=== PATIENT | male | born 1955 ===

== ENCOUNTER 2023-06-21 07:02 | Outpatient (NON) | payer MEDICARE, SELFPAY ==
[2023-06-21 07:51] LABS: Basophils Absolute Auto 0.04 K/mm3 (0.00-0.10); Basophils Percent Auto 0.6 % (0.0-1.0); Eosinophils Absolute Auto 0.14 K/mm3 (0.02-0.50); Hematocrit 33.2 % (37.0-46.0); Hemoglobin 9.7 g/dL (12.4-15.3); Immature Granulocyte Absolute 0.02 K/mm3 (0.00-0.00); Immature Granulocyte Percent A 0.3 % (0.0-0.0); Lymphocytes Absolute Auto 0.46 K/mm3 (1.10-4.50); Lymphocytes Percent Auto 6.6 % (18.0-42.0); Mean Corpuscular HGB Conc 29.2 g/dL (32-36); Mean Corpuscular Hemoglobin 22.4 pg (27.0-31.0); Mean Corpuscular Volume 76.5 fL (78.0-102.0); Mean Platelet Volume 10.1 fl (8.7-11.0); Monocytes Absolute Auto 1.01 K/mm3 (0.10-0.90); Monocytes Percent Auto 14.6 % (2.0-11.0); Neutrophils Absolute Auto 5.27 K/mm3 (1.70-7.20); Neutrophils Percent Auto 75.9 % (50.0-70.0); Platelet Count Result 265 K/mm3 (150-420); Red Blood Count 4.34 M/mm3 (4.70-6.10); Red Cell Distribution Width 16.3 % (11.6-14.4); White Blood Count 6.9 K/mm3 (4.8-10.8)
[2023-06-21 08:15] LABS: Alanine Aminotransferase 16 U/L (16-63); Albumin Level 2.9 g/dL (3.4-5.0); Alkaline Phosphatase 150 U/L (46-116); Anion Gap 11 mmol/L (8-16); Aspartate Amino Transferase 13 U/L (15-37); Bilirubin,Total 0.7 mg/dL (0.00-1.00); Blood Urea Nitrogen 39 mg/dL (7-18); Calcium 8.1 mg/dL (8.5-10.1); Carbon Dioxide 28 mmol/L (21-32); Chloride 103 mmol/L (98-108); Cholesterol 77 mg/dL (0-200); Estimated Glomerular Filt Rate 37; Glucose 269 mg/dL (70-99); HDL Direct 40 mg/dL (40-60); LDL Cholesterol Calculated 26 mg/dL (<130); Osmolality Calculated 312 mOsm/kg (285-295); Potassium 3.8 mmol/L (3.5-5.1); Sodium 142 mmol/L (136-145); Thyroid Stimulating Hormone 2.35 uIU/mL (0.36-3.74); Total Protein 6.3 g/dL (6.4-8.2); Triglycerides 53 mg/dL (0-150)
[2023-06-23 10:46] LABS: Hemoglobin A1C 10.4 % (<5.7)
[2023-06-23 11:01] LABS: Ferritin 47 ng/mL (26-388); Iron 18 ug/dL (65-175); Percent Iron Saturation 5 % (12-57)
== END 2023-06-21 07:03 | disposition home or self-care (01) ==
PROVIDERS: Visit Provider Family Medicine
DX: I10 Essential (primary) hypertension (principal); E07.9 Disorder of thyroid, unspecified; E11.9 Type 2 diabetes mellitus without complications
CPT/HCPCS: 36415; 80053; 80061; 82728; 83036; 83540; 83550; 84443; 85025

== ENCOUNTER 2023-06-29 14:40 | Outpatient (CLI) | payer MEDICARE, SELFPAY ==
--- NOTE | ~2023-06-29 | XR_ITS ---
EXAM: XR ankle RT 2V, XR ankle LT 2V DATE: 06/29/2023 15:29 HISTORY: OA, weightbearing pain X 2-3 weeks . COMPARISON: None available. FINDINGS: Normal mineralization. Radiographic detail obscured in the right ankle by overlying bandag e material. No fracture or dislocation. No lytic or blastic lesion. Mild bilateral tibiotalar and mid foot degenerative change. Moderate bilateral Achilles and plantar enthesopathy. No erosion or periost eal change. Vascular calcifications. IMPRESSION: No acute osseous finding in the left or right ankles. Reviewed, dictated and finalized at location K. IMPRESSION: No acute osseous finding in the left or right ankles.
--- NOTE | ~2023-06-29 | XR_ITS ---
EXAM: XR knee RT 3V, XR knee LT 3V DATE: 06/29/2023 15:28 HISTORY: weightbearing knee pain X 2-3 weeks . COMPARISON: None available. FINDINGS: Normal mineralization. No fracture or dislocation. No lytic or blastic lesion. Mild medial and lateral joint space narrowing bilaterally. Mild tricompartmental osteophytosis bilaterally. Righ t patellar enthesopathy. Scattered vascular calcifications. No erosion or periosteal change. Soft tis sues within normal limits. IMPRESSION: Bilateral mild tricompartmental knee osteoarthritis. Reviewed, dictated and finalized at location K. IMPRESSION: Bilateral mild tricompartmental knee osteoarthritis.
== END 2023-06-29 14:41 | disposition home or self-care (01) ==
PROVIDERS: PCP Family Medicine; Visit Provider Family Medicine
DX: R52 Pain, unspecified (principal); M17.0 Bilateral primary osteoarthritis of knee
CPT/HCPCS: 73562; 73600

== ENCOUNTER 2023-07-07 06:52 | Outpatient (NON) | payer MEDICARE, SELFPAY ==
[2023-07-07 07:43] LABS: Alanine Aminotransferase 15 U/L (16-63); Albumin Level 2.9 g/dL (3.4-5.0); Alkaline Phosphatase 148 U/L (46-116); Anion Gap 9 mmol/L (4-12); Aspartate Amino Transferase 18 U/L (15-37); Bilirubin,Total 1.1 mg/dL (0.00-1.00); Blood Urea Nitrogen 32 mg/dL (7-18); Calcium 8.4 mg/dL (8.5-10.1); Carbon Dioxide 32 mmol/L (21-32); Chloride 104 mmol/L (98-108); Estimated Glomerular Filt Rate 43; Glucose 154 mg/dL (70-99); Osmolality Calculated 309 mOsm/kg (285-295); Potassium 3.9 mmol/L (3.5-5.1); Sodium 145 mmol/L (136-145); Total Protein 6.1 g/dL (6.4-8.2)
== END 2023-07-07 06:53 | disposition home or self-care (01) ==
LOC: CHSLAB 06:54
PROVIDERS: Visit Provider Family Medicine
DX: I50.9 Heart failure, unspecified (principal); N18.30 Chronic kidney disease, stage 3 unspecified; E11.9 Type 2 diabetes mellitus without complications
CPT/HCPCS: 36415; 80053

== ENCOUNTER 2023-07-18 14:01 | Outpatient (NON) | payer MEDICARE, SELFPAY ==
[2023-07-18 14:13] LABS: Hematocrit 40.7 % (37.0-46.0); Mean Corpuscular Hemoglobin 22.4 pg (27.0-31.0); Mean Corpuscular Volume 83.1 fL (78.0-102.0); Mean Platelet Volume 9.8 fl (8.7-11.0); Platelet Count Result 343 K/mm3 (150-420); Red Cell Distribution Width 22.6 % (11.6-14.4); White Blood Count 8.9 K/mm3 (4.8-10.8)
[2023-07-18 14:59] LABS: Alanine Aminotransferase 24 U/L (16-63); Albumin Level 3.2 g/dL (3.4-5.0); Alkaline Phosphatase 190 U/L (46-116); Anion Gap 7 mmol/L (4-12); Aspartate Amino Transferase 27 U/L (15-37); Bilirubin,Total 0.8 mg/dL (0.00-1.00); Blood Urea Nitrogen 37 mg/dL (7-18); Calcium 8.4 mg/dL (8.5-10.1); Carbon Dioxide 34 mmol/L (21-32); Chloride 102 mmol/L (98-108); Estimated Glomerular Filt Rate 37; Glucose 147 mg/dL (70-99); NT Pro B Type Natriuretic Pept 8612 pg/mL (0-125); Osmolality Calculated 307 mOsm/kg (285-295); Potassium 4.1 mmol/L (3.5-5.1); Sodium 143 mmol/L (136-145)
== END 2023-07-18 14:02 | disposition home or self-care (01) ==
LOC: CHSLAB 14:02
PROVIDERS: Visit Provider Family Medicine
DX: I87.311 Chronic venous hypertension (idiopathic) with ulcer of right lower extremity (principal); L97.812 Non-pressure chronic ulcer of other part of right lower leg with fat layer exposed; L97.822 Non-pressure chronic ulcer of other part of left lower leg with fat layer exposed; E78.5 Hyperlipidemia, unspecified; I10 Essential (primary) hypertension; I50.9 Heart failure, unspecified; N18.30 Chronic kidney disease, stage 3 unspecified; E11.9 Type 2 diabetes mellitus without complications
CPT/HCPCS: 36415; 80053; 83880; 85027

== ENCOUNTER 2023-08-02 06:45 | Outpatient (NON) | payer MEDICARE, SELFPAY ==
[2023-08-02 07:27] LABS: Basophils Absolute Auto 0.06 K/mm3 (0.00-0.10); Basophils Percent Auto 0.6 % (0.0-1.0); Eosinophils Absolute Auto 0.13 K/mm3 (0.02-0.50); Eosinophils Percent Auto 1.3 % (1.0-6.0); Hemoglobin 12.8 g/dL (12.4-15.3); Immature Granulocyte Absolute 0.05 K/mm3 (0.00-0.00); Immature Granulocyte Percent A 0.5 % (0.0-0.0); Lymphocytes Absolute Auto 0.71 K/mm3 (1.10-4.50); Lymphocytes Percent Auto 7.3 % (18.0-42.0); Mean Corpuscular HGB Conc 29.1 g/dL (32-36); Mean Corpuscular Hemoglobin 23.1 pg (27.0-31.0); Mean Corpuscular Volume 79.3 fL (78.0-102.0); Mean Platelet Volume 9.6 fl (8.7-11.0); Monocytes Absolute Auto 1.36 K/mm3 (0.10-0.90); Neutrophils Absolute Auto 7.37 K/mm3 (1.70-7.20); Neutrophils Percent Auto 76.3 % (50.0-70.0); Platelet Count Result 452 K/mm3 (150-420); Red Blood Count 5.55 M/mm3 (4.70-6.10); Red Cell Distribution Width 23.3 % (11.6-14.4); White Blood Count 9.7 K/mm3 (4.8-10.8)
[2023-08-02 07:39] LABS: Alanine Aminotransferase 27 U/L (16-63); Albumin Level 3.3 g/dL (3.4-5.0); Alkaline Phosphatase 176 U/L (46-116); Anion Gap 5 mmol/L (4-12); Aspartate Amino Transferase 33 U/L (15-37); Bilirubin,Total 0.9 mg/dL (0.00-1.00); Blood Urea Nitrogen 61 mg/dL (7-18); Calcium 9.1 mg/dL (8.5-10.1); Carbon Dioxide 33 mmol/L (21-32); Chloride 97 mmol/L (98-108); Estimated Glomerular Filt Rate 26; Glucose 185 mg/dL (70-99); Osmolality Calculated 302 mOsm/kg (285-295); Potassium 4.6 mmol/L (3.5-5.1); Sodium 135 mmol/L (136-145); Total Protein 7.7 g/dL (6.4-8.2)
== END 2023-08-02 06:46 | disposition home or self-care (01) ==
LOC: CHSLAB 06:47
PROVIDERS: Visit Provider Family Medicine
DX: I10 Essential (primary) hypertension (principal); I50.9 Heart failure, unspecified; N18.30 Chronic kidney disease, stage 3 unspecified; E11.9 Type 2 diabetes mellitus without complications
CPT/HCPCS: 36415; 80053; 85025

== ENCOUNTER 2024-02-17 11:55 | Outpatient (CLI) | payer MEDICARE, SELFPAY ==
[2024-02-17 12:17] LABS: Add Urine Microscopic? NO; Appearance Urine Clear (Clear); Bilirubin Urine Negative (Negative); Blood Urine Negative (Negative); Color Urine Light Yellow (Yellow); Glucose Urine UA 3+ (Negative); Ketones Urine Negative (Negative); Leukocyte Esterase Ur Negative LEU/UL (Negative); Nitrate Urine Negative (Negative); Protein Urine Negative (Negative); Specific Grav Ur 1.015 (1.010-1.020); Urobilinogen Urine 0.2 mg/dL (0.2-1.0); pH Urine 5.5 (5.0-8.0)
[2024-02-17 12:18] LABS: Basophils Absolute Auto 0.06 K/mm3 (0.00-0.10); Basophils Percent Auto 0.5 % (0.0-1.0); Eosinophils Absolute Auto 0.19 K/mm3 (0.02-0.50); Eosinophils Percent Auto 1.4 % (1.0-6.0); Hematocrit 49.3 % (37.0-46.0); Immature Granulocyte Absolute 0.06 K/mm3 (0.00-0.00); Immature Granulocyte Percent A 0.5 % (0.0-0.0); Lymphocytes Absolute Auto 0.77 K/mm3 (1.10-4.50); Lymphocytes Percent Auto 5.9 % (18.0-42.0); Mean Corpuscular HGB Conc 32.5 g/dL (32-36); Mean Corpuscular Volume 86.3 fL (78.0-102.0); Mean Platelet Volume 10.3 fl (8.7-11.0); Monocytes Absolute Auto 1.26 K/mm3 (0.10-0.90); Monocytes Percent Auto 9.6 % (2.0-11.0); Neutrophils Percent Auto 82.1 % (50.0-70.0); Platelet Count Result 320 K/mm3 (150-420); Red Blood Count 5.71 M/mm3 (4.70-6.10); Red Cell Distribution Width 14.1 % (11.6-14.4); White Blood Count 13.1 K/mm3 (4.8-10.8)
[2024-02-17 13:21] LABS: Prostate Specific Antigen 0.6 ng/mL (< OR = 4.0)
== END 2024-02-17 11:56 | disposition home or self-care (01) ==
LOC: CHSLAB 11:56
PROVIDERS: PCP Family Medicine; Visit Provider Family Medicine
DX: N18.30 Chronic kidney disease, stage 3 unspecified (principal); Z12.5 Encounter for screening for malignant neoplasm of prostate
CPT/HCPCS: 36415; 81003; 84153; 85025; G0103

== ENCOUNTER 2024-02-22 11:04 | Outpatient (CLI) | payer MEDICARE, SELFPAY ==
--- NOTE | ~2024-02-22 | XR_ITS ---
XR ankle LT min 3V Ordering provider: Jaxon Angel MD History: . Bilateral ankle soreness X 1 month . Comparison: None. FINDINGS: BONES: No acute fracture or dislocation. Calcaneal spur. Ossification of the insertion of the tendo A chilles. JOINT SPACES: The ankle mortise is normal. SOFT TISSUES: Normal. IMPRESSION: No acute osseous abnormality left ankle. Reviewed, dictated and finalized at location A. RVISOR HIDE HOUSE
--- NOTE | ~2024-02-22 | XR_ITS ---
XR ankle RT min 3V Ordering provider: Jaxon Angel MD History: . Bilateral ankle soreness X 1 month . Comparison: None. FINDINGS: BONES: No acute fracture or dislocation. Calcaneus spur. Ossification of the insertion of the tendo Achilles. JOINT SPACES: Normal. SOFT TISSUES: Normal. IMPRESSION: No acute osseous abnormality of the right ankle. Reviewed, dictated and finalized at location A. ET LAYER HELPER
== END 2024-02-22 11:05 | disposition home or self-care (01) ==
LOC: CHSIMG 11:06
PROVIDERS: PCP Family Medicine; Visit Provider Family Medicine
DX: M25.571 Pain in right ankle and joints of right foot (principal); M25.572 Pain in left ankle and joints of left foot
CPT/HCPCS: 73610

== ENCOUNTER 2024-03-23 10:05 | Outpatient (CLI) | payer MEDICARE, SELFPAY ==
[2024-03-24 07:24] LABS: Mumps Virus IgG Antibody >300.00 AU/mL; Rubeola Measles IgG >300.00 AU/mL
== END 2024-03-23 10:06 | disposition home or self-care (01) ==
PROVIDERS: PCP Family Medicine; Visit Provider Family Medicine
DX: Z01.84 Encounter for antibody response examination (principal)
CPT/HCPCS: 36415; 86735; 86765

== ENCOUNTER 2024-05-24 09:37 | Outpatient (CLI) | payer MEDICARE, SELFPAY ==
--- OUTSIDE RECORDS SUMMARY | 2024-05-24 09:49 | XMS_ITS | Clinical Summary ---
Author Organization [facility] Address [address] 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
--- OUTSIDE RECORDS SUMMARY | 2024-05-24 09:49 | XMS_ITS | Encounter Summary ---
Author Organization [employer] Address [address] [place] [address] Care Team Providers Care Aqueduct And Reservoir Keeper Name Role Phone Unavailable Primary Care Provider Unavailabl e Encounter Details Date Type Department Care Team (Latest Contact Info) Description 06/13/2006 Outpatient Historical HIS CARD THERAPY SITE COORDINATOR KELVIN Jacinto, Prahbjot Soriano MD [address] [facility] [address] [place] [address] Other Nonspecific Abnormal Cardiovascular System Function Study (Primary Dx) Social History Tobacco Use Types Packs/Day Years Used Date Smoking Tobacco: Never Assessed Sex and Gender Information Value Date Recorded Sex Assigned at Not on file Legal Sex Male 2:52 AM KITCHEN STEWARD/STEWARDESS Gender Identity Not on file Sexual Orientation Not on file documented as of this encounter Plan of Treatment Not on file documented as of this encounter Procedures Procedure Name Priority Date/Time Associated Diagnosis Comments POC GLUCOSE Routine 06/13/2006 10:15 AM CDT documented in this encounter Results * (ABNORMAL) POC GLUCOSE (06/13/2006 10:15 AM CDT) COMMENT, GLU POC Notified RN INTERFACE SYSTEM GLUCOSE POC 114(H) 65 - 99 mg/dL INTERFACE SYSTEM 06/13/2006 10:1 5 AM CDT us Prabhjot Jacinto MD POINT OF CARE TESTING Durga eric INTERFACE SYSTEM Refer to clinic/hospital department documented in this encounter Visit Diagnoses Diagnosis Other nonspecific abnormal cardiovascular system function study- Primary documented in this encounter
[2024-05-24 09:59] LABS: Hematocrit 45.5 % (37.0-46.0); Hemoglobin 14.2 g/dL (12.4-15.3); Mean Corpuscular HGB Conc 31.2 g/dL (32-36); Mean Corpuscular Hemoglobin 27.5 pg (27.0-31.0); Mean Platelet Volume 9.9 fl (8.7-11.0); Platelet Count Result 336 K/mm3 (150-420); Red Blood Count 5.17 M/mm3 (4.70-6.10); Red Cell Distribution Width 14.8 % (11.6-14.4); White Blood Count 10.4 K/mm3 (4.8-10.8)
[2024-05-24 10:44] LABS: Alanine Aminotransferase 16 U/L (16-63); Albumin Level 3.2 g/dL (3.4-5.0); Alkaline Phosphatase 136 U/L (46-116); Anion Gap 8 mmol/L (4-12); Aspartate Amino Transferase < 10 U/L (15-37); Bilirubin,Total 0.6 mg/dL (0.00-1.00); Blood Urea Nitrogen 36 mg/dL (7-18); Calcium 8.7 mg/dL (8.5-10.1); Carbon Dioxide 27 mmol/L (21-32); Chloride 104 mmol/L (98-108); Estimated Glomerular Filt Rate 45; Glucose 176 mg/dL (70-99); Osmolality Calculated 300 mOsm/kg (285-295); Potassium 5.4 mmol/L (3.5-5.1); Sodium 139 mmol/L (136-145); Thyroid Stimulating Hormone 1.41 uIU/mL (0.36-3.74); Total Protein 7.1 g/dL (6.4-8.2); Vitamin B12 734 pg/mL (193-986)
[2024-05-26 01:24] LABS: Vitamin D 25 Hydroxy 16 ng/mL (30-100)
== END 2024-05-24 09:38 | disposition home or self-care (01) ==
LOC: CHSLAB 09:41
PROVIDERS: PCP Family Medicine; Visit Provider Family Medicine
DX: I69.30 Unspecified sequelae of cerebral infarction (principal); E11.22 Type 2 diabetes mellitus with diabetic chronic kidney disease; E66.01 Morbid (severe) obesity due to excess calories; J96.11 Chronic respiratory failure with hypoxia; I50.32 Chronic diastolic (congestive) heart failure; I10 Essential (primary) hypertension
CPT/HCPCS: 36415; 80053; 82306; 82607; 83036; 84443; 85027

== ENCOUNTER 2024-06-12 09:34 | Outpatient (CLI) | payer MEDICARE, SELFPAY ==
--- OUTSIDE RECORDS SUMMARY | 2024-06-12 10:31 | XMS_ITS | Encounter Summary ---
Author Organization [employer] Address [address] [place] [address] Care Team Providers Care Air Technician Name Role Phone Unavailable Primary Care Provider Unavailabl e Encounter Details Date Type Department Care Team (Latest Contact Info) Description 06/13/2006 Outpatient Historical HIS CARD SR. 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
--- OUTSIDE RECORDS SUMMARY | 2024-06-12 10:31 | XMS_ITS | Clinical Summary ---
Author Organization [facility] Address [address] 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
[2024-06-12 10:43] LABS: Anion Gap 6 mmol/L (4-12); Blood Urea Nitrogen 34 mg/dL (7-18); Calcium 8.3 mg/dL (8.5-10.1); Carbon Dioxide 29 mmol/L (21-32); Chloride 104 mmol/L (98-108); Estimated Glomerular Filt Rate 48; Glucose 337 mg/dL (70-99); Osmolality Calculated 308 mOsm/kg (285-295); Sodium 139 mmol/L (136-145)
== END 2024-06-12 09:35 | disposition home or self-care (01) ==
LOC: CHSLAB 09:36
PROVIDERS: PCP Family Medicine; Visit Provider Family Medicine
DX: I50.9 Heart failure, unspecified (principal); E11.9 Type 2 diabetes mellitus without complications; I10 Essential (primary) hypertension
CPT/HCPCS: 36415; 80048

== ENCOUNTER 2024-07-05 10:20 | Outpatient (CLI) | payer MEDICARE, SELFPAY ==
[2024-07-05 10:39] LABS: Basophils Absolute Auto 0.07 K/mm3 (0.00-0.10); Basophils Percent Auto 0.7 % (0.0-1.0); Eosinophils Absolute Auto 0.13 K/mm3 (0.02-0.50); Eosinophils Percent Auto 1.3 % (1.0-6.0); Hematocrit 41.2 % (37.0-46.0); Hemoglobin 12.9 g/dL (12.4-15.3); Immature Granulocyte Absolute 0.06 K/mm3 (0.00-0.00); Immature Granulocyte Percent A 0.6 % (0.0-0.0); Lymphocytes Absolute Auto 0.71 K/mm3 (1.10-4.50); Lymphocytes Percent Auto 7.3 % (18.0-42.0); Mean Corpuscular HGB Conc 31.3 g/dL (32-36); Mean Corpuscular Volume 92.6 fL (78.0-102.0); Mean Platelet Volume 10.1 fl (8.7-11.0); Monocytes Absolute Auto 0.78 K/mm3 (0.10-0.90); Monocytes Percent Auto 8.1 % (2.0-11.0); Neutrophils Absolute Auto 7.91 K/mm3 (1.70-7.20); Platelet Count Result 279 K/mm3 (150-420); Red Blood Count 4.45 M/mm3 (4.70-6.10); Red Cell Distribution Width 15.7 % (11.6-14.4); White Blood Count 9.7 K/mm3 (4.8-10.8)
--- OUTSIDE RECORDS SUMMARY | 2024-07-05 11:09 | XMS_ITS | Clinical Summary ---
Author Organization [facility] Address [address] 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
--- OUTSIDE RECORDS SUMMARY | 2024-07-05 11:09 | XMS_ITS | Encounter Summary ---
Author Organization [facility] [facility] [employer] [facility] Address [address] [place] [address] Care Team Providers Care Decorator Hand Name Role Phone Unavailable Primary Care Provider Unavailabl e Encounter Details Date Type Department Care Team (Latest Contact Info) Description 06/13/2006 Outpatient Historical HIS CARD CELLOPHANE BAG MACHINE OPERATOR KELVIN Jacinto, Prabhjot Soriano MD [address] [facility] [address] [place] [address] Other Nonspecific Abnormal Cardiovascular System Function Study (Primary Dx) Social History Tobacco Use Types Packs/Day Years Used Date Smoking Tobacco: Never Assessed Sex and Gender Information Value Date Recorded Sex Assigned at Not on file 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
[2024-07-05 11:34] LABS: Alanine Aminotransferase 16 U/L (16-63); Albumin Level 3.2 g/dL (3.4-5.0); Alkaline Phosphatase 141 U/L (46-116); Anion Gap 11 mmol/L (4-12); Aspartate Amino Transferase 23 U/L (15-37); Bilirubin,Total 0.8 mg/dL (0.00-1.00); Blood Urea Nitrogen 27 mg/dL (7-18); Calcium 8.2 mg/dL (8.5-10.1); Carbon Dioxide 25 mmol/L (21-32); Chloride 106 mmol/L (98-108); Estimated Glomerular Filt Rate 46; Glucose 202 mg/dL (70-99); NT Pro B Type Natriuretic Pept 12235 pg/mL (0-125); Osmolality Calculated 305 mOsm/kg (285-295); Potassium 4.8 mmol/L (3.5-5.1); Sodium 142 mmol/L (136-145); Total Protein 6.9 g/dL (6.4-8.2)
== END 2024-07-05 10:21 | disposition home or self-care (01) ==
PROVIDERS: PCP Family Medicine; Visit Provider Family Medicine
DX: I69.30 Unspecified sequelae of cerebral infarction (principal); E11.22 Type 2 diabetes mellitus with diabetic chronic kidney disease; I50.32 Chronic diastolic (congestive) heart failure
CPT/HCPCS: 36415; 80053; 83880; 85025

== ENCOUNTER 2024-07-18 09:30 | Outpatient (CLI) | payer MEDICARE, SELFPAY ==
[2024-07-18 09:55] LABS: Basophils Absolute Auto 0.05 K/mm3 (0.00-0.10); Basophils Percent Auto 0.5 % (0.0-1.0); Eosinophils Absolute Auto 0.09 K/mm3 (0.02-0.50); Eosinophils Percent Auto 0.9 % (1.0-6.0); Hematocrit 39.8 % (37.0-46.0); Hemoglobin 12.2 g/dL (12.4-15.3); Immature Granulocyte Absolute 0.04 K/mm3 (0.00-0.00); Immature Granulocyte Percent A 0.4 % (0.0-0.0); Lymphocytes Absolute Auto 0.47 K/mm3 (1.10-4.50); Mean Corpuscular HGB Conc 30.7 g/dL (32-36); Mean Corpuscular Hemoglobin 28.8 pg (27.0-31.0); Mean Corpuscular Volume 94.1 fL (78.0-102.0); Mean Platelet Volume 10.1 fl (8.7-11.0); Monocytes Absolute Auto 0.91 K/mm3 (0.10-0.90); Monocytes Percent Auto 9.6 % (2.0-11.0); Neutrophils Absolute Auto 7.93 K/mm3 (1.70-7.20); Neutrophils Percent Auto 83.6 % (50.0-70.0); Platelet Count Result 258 K/mm3 (150-420); Red Blood Count 4.23 M/mm3 (4.70-6.10); Red Cell Distribution Width 15.7 % (11.6-14.4); White Blood Count 9.5 K/mm3 (4.8-10.8)
--- OUTSIDE RECORDS SUMMARY | 2024-07-18 10:20 | XMS_ITS | Clinical Summary ---
Author Organization [facility] Address [address] Balbuenan: Epic Prelude ADT TRACE ROJO [address] Care Team Providers Care Utility Worker Forge Name Role Phone Unavailable Primary Care Provider Unavailabl e Social History Tobacco Use Types Packs/Day Years Used Date Smoking Tobacco: Never Assessed Sex and Gender Information Value Date Recorded Sex Assigned at Not on file Legal Sex Male 2:52 AM SPONGE BUFFER Gender Identity Not on file Sexual Orientation [...]
--- OUTSIDE RECORDS SUMMARY | 2024-07-18 10:20 | XMS_ITS | Encounter Summary ---
Author Organization [employer] Address [address] [place] [address] Care Team Providers Care Senior Software Developer Name Role Phone Unavailable Primary Care Provider Unavailabl e Encounter Details Date Type Department Care Team (Latest Contact Info) Description 06/13/2006 Outpatient Historical HIS CARD VP GLOBAL KELVIN Jacinto, Prabhjot Soriano MD [address] [facility] [address] [place] [address] Other Nonspecific Abnormal Cardiovascular System Function Study (Primary Dx) Social History Tobacco Use Types Packs/Day Years Used Date Smoking Tobacco: Never Assessed Sex and Gender Information Value Date Recorded Sex Assigned at Not on file Legal Sex Male 2:52 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
[2024-07-18 10:24] LABS: Alanine Aminotransferase 12 U/L (16-63); Albumin Level 2.8 g/dL (3.4-5.0); Alkaline Phosphatase 134 U/L (46-116); Anion Gap 5 mmol/L (4-12); Aspartate Amino Transferase < 10 U/L (15-37); Blood Urea Nitrogen 26 mg/dL (7-18); Carbon Dioxide 29 mmol/L (21-32); Chloride 107 mmol/L (98-108); Estimated Glomerular Filt Rate 42; Glucose 235 mg/dL (70-99); NT Pro B Type Natriuretic Pept 15629 pg/mL (0-125); Osmolality Calculated 304 mOsm/kg (285-295); Potassium 4.9 mmol/L (3.5-5.1); Sodium 141 mmol/L (136-145); Thyroid Stimulating Hormone 1.94 uIU/mL (0.36-3.74); Total Protein 6.4 g/dL (6.4-8.2); Uric Acid 6.5 mg/dL (3.5-7.2)
== END 2024-07-18 09:31 | disposition home or self-care (01) ==
PROVIDERS: PCP Family Medicine; Visit Provider Family Medicine
DX: I50.32 Chronic diastolic (congestive) heart failure (principal); R60.9 Edema, unspecified; I10 Essential (primary) hypertension; E11.9 Type 2 diabetes mellitus without complications; R53.1 Weakness
CPT/HCPCS: 36415; 80053; 83880; 84443; 84550; 85025

== ENCOUNTER 2024-07-19 09:43 | Outpatient (CLI) | payer MEDICARE, SELFPAY ==
--- NOTE | ~2024-07-19 | XR_ITS ---
Clinical Indication: Fluid overload AP and lateral views of the chest: Comparison: 06/17/2006 Findings: The lungs are clear, without evidence of focal consolidation or pleural effusion. Cardiome diastinal silhouette is enlarged. Bones and soft tissues are unremarkable. Impression: Clear lungs. Cardiomegaly. Reviewed, dictated and finalized at location . Impression: Clear lungs. Cardiomegaly.
--- OUTSIDE RECORDS SUMMARY | 2024-07-19 10:18 | XMS_ITS | Clinical Summary ---
Author Organization [email or web address] Address [address] [place]enan: Epic Prelude ADT TRACE ROJO [address] Care Team Providers Care Trimmer Loader Name Role Phone Unavailable Primary Care Provider Unavailabl e Social History Tobacco Use Types Packs/Day Years Used Date Smoking Tobacco: Never Assessed Sex and Gender Information Value Date Recorded Sex Assigned at Not on file Legal Sex Male 2:52 AM DIAMOND CLEANER Gender Identity Not on file Sexual Orientation [...]
--- OUTSIDE RECORDS SUMMARY | 2024-07-19 10:18 | XMS_ITS | Encounter Summary ---
Author Organization [employer] Address [address] [place] [address] Care Team Providers Care Fiber Optic Splicer Name Role Phone Unavailable Primary Care Provider Unavailabl e Encounter Details Date Type Department Care Team (Latest Contact Info) Description 06/13/2006 Outpatient Historical HIS CARD HEMSTITCHING MACHINE OPERATOR KELVIN Jacinto, Prabhjot Soriano MD [address] [facility] [address] [place] [address] Other Nonspecific Abnormal Cardiovascular System Function Study (Primary Dx) Social History Tobacco Use Types Packs/Day Years Used Date Smoking Tobacco: Never Assessed Sex and Gender Information Value Date Recorded Sex Assigned at Not on file Legal Sex Male 2:52 AM PUBLIC INFORMATION RELATIONS MANAGER Gender Identity Not on file Sexual Orientation [...]
== END 2024-07-19 09:44 | disposition home or self-care (01) ==
LOC: CHSIMG 09:46
PROVIDERS: PCP Family Medicine; Visit Provider Family Medicine
DX: R60.9 Edema, unspecified (principal); R53.83 Other fatigue; R53.1 Weakness; I51.7 Cardiomegaly
CPT/HCPCS: 71046

== ENCOUNTER 2024-07-20 13:19 | Inpatient (IN) | payer MEDICARE, SELFPAY ==
[2024-07-20] VITALS (10 sets, daily range): BP systolic 125–144; BP diastolic 48–88; PULSE 66–82; RESP 17–25; TEMP 35.6–36.4; O2SAT 91–94; BMI 46.1
--- NOTE | ~2024-07-20 | XR_ITS ---
XR chest 1V portable 07/20/2024 13:43 Indication: Retaining fluid. Shortness of breath. Increasing weight gain. Procedure: AP portable chest Comparison: 07/19/2024 Findings: Cardiomegaly with interstitial edema. No significant effusion or pneumothorax. No acute oss eous abnormality. Impression: 1: Cardiomegaly with interstitial edema. Reviewed, dictated and finalized at location B. Impression: 1: Cardiomegaly with interstitial edema.
--- NOTE | ~2024-07-20 | XR_ITS ---
EXAMINATION: XR chest 1V portable DATE: 07/21/2024 09:56 INDICATION: Congestive heart failure TECHNIQUE: frontal view of the chest was obtained. COMPARISON: Chest radiograph dated 07/20/2024 FINDINGS: Cardiomegaly with pulmonary vascular congestion. Improved aeration in the left lower lung zone. Minim al right pleural effusion along the minor fissure. Airspace opacity medial right lung base which coul d represent atelectasis or pneumonia. No pneumothorax. IMPRESSION: 1. Airspace opacity medial right lung base which could represent atelectasis or pneumonia. 2. Minimal right pleural effusion along the minor fissure. 3. Cardiomegaly. Reviewed, dictated and finalized at location A.
--- OUTSIDE RECORDS SUMMARY | 2024-07-20 13:21 | XMS_ITS | Clinical Summary ---
Author Organization [facility] Address [address] 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
--- OUTSIDE RECORDS SUMMARY | 2024-07-20 13:21 | XMS_ITS | Encounter Summary ---
Author Organization [employer] Address [address] [place] [address] Care Team Providers Care Heater Planer Operator Name Role Phone Unavailable Primary Care Provider Unavailabl e Encounter Details Date Type Department Care Team (Latest Contact Info) Description 06/13/2006 Outpatient Historical HIS CARD PREDATORY ANIMAL EXTERMINATOR KELVIN Jacinto, Prabhjot Soriano MD [address] [facility] [address] [place] [address] Other Nonspecific Abnormal Cardiovascular System Function Study (Primary Dx) Social History Tobacco Use Types Packs/Day Years Used Date Smoking Tobacco: Never Assessed Sex and Gender Information Value Date Recorded Sex Assigned at Not on file Legal Sex Male 2:52 AM COMMUNITY HEALTH COORDINATOR Gender Identity Not on file Sexual Orientation [...]
--- NOTE | 2024-07-20 13:29 | ECG_ITS ---
Test Date: 2024-07-20 13:33:58 Measurements Intervals [place] Rate: 73 P: 69 GA: 227 QRS: -22 QRSD: 117 T: 140 QT: 437 QTc: 483 Interpretive Statements SINUS RHYTHM WITH FIRST DEGREE AV BLOCK WITH OCCASIONAL SUPRAVENTRICULAR PREMATURE COMPLEXES LEFT VENTRICULAR HYPERTROPHY AND ST-T CHANGE POSSIBLE ANTERIOR MYOCARDIAL INFARCTION , OF INDETERMINATE AGE ABNORMAL ECG No previous ECG available for comparison Electronically Signed On 07-20-2024 14:07:09 CDT by Rivera Chawla D.O.
--- NOTE | 2024-07-20 13:29 | ED.SOB ---
HPI - SOB/Dyspnea General Chief Complaint: Shortness of Breath/Dyspnea Stated Complaint: increase weight gain Time Seen by Provider: 07/20/24 13:29 Source: patient and family Mode of arrival: ambulatory Limitations: dementia History of Present Illness HPI Narrative: 69 years old white male came from long term with his sister who is telling me that patient been gaining weight over the last few weeks. Patient report possible shortness of breath for unknown duration. History of anemia, diabetes, hyperlipidemia, GERD, depression, CHF, Patient denies any fever, chills, nausea, vomiting, chest pain or back pain or abdominal pain. Related Data Home Medications ?Medication ?Instructions ?Recorded ?Confirmed ?Last Taken ?Type acetaminophen 500 mg tablet 500 mg PO .Q8HR PRN pain 07/20/24 07/20/24 07/20/24 History acetaminophen 500 mg tablet 1,000 mg PO QAM PRN pain (scale 07/20/24 07/20/24 07/20/24 History (Tylenol Extra Strength) score 1-3) ascorbic acid (vitamin C) 250 mg 250 mg PO DAILY 07/20/24 07/20/24 07/20/24 History tablet atorvastatin 40 mg tablet (Lipitor) 40 mg PO HS 07/20/24 07/20/24 07/19/24 History clopidogrel 75 mg tablet 75 mg PO DAILY 07/20/24 07/20/24 07/20/24 History diphenhydramine 25 1 tablet PO HS PRN sleep 07/20/24 07/20/24 06/29/24 History mg-acetaminophen 500 mg tablet (Tylenol PM Extra Strength) ergocalciferol (vitamin D2) 50 mcg 50 mcg PO DAILY 07/20/24 07/20/24 07/20/24 History (2,000 unit) capsule ezetimibe 10 mg tablet 10 mg PO DAILY 07/20/24 07/20/24 07/20/24 History ferrous sulfate 325 mg (65 mg 325 mg PO DAILY 07/20/24 07/20/24 07/20/24 History iron) tablet fluoxetine 10 mg tablet 10 mg PO DAILY 07/20/24 07/20/24 07/20/24 History fluoxetine 20 mg capsule 20 mg PO DAILY 07/20/24 07/20/24 07/20/24 History furosemide 40 mg tablet 40 mg PO DAILY 07/20/24 07/20/24 07/20/24 History insulin glargine 100 unit/mL 25 unit subcut QPM 07/20/24 07/20/24 07/19/24 History subcutaneous solution (Lantus U-100 Insulin) pantoprazole 40 mg tablet,delayed 40 mg PO BID 07/20/24 07/20/24 07/20/24 History release semaglutide 2 mg/dose (8 mg/3 mL) 2 mg subcut WEEKLY 07/20/24 07/20/24 07/20/24 History subcutaneous pen injector (Ozempic) tamsulosin 0.4 mg capsule 0.4 mg PO HS 07/20/24 07/20/24 07/19/24 History tramadol 50 mg tablet 50 mg PO Q6H PRN pain 07/20/24 07/20/24 Unknown History Allergies Allergy/AdvReac Type Severity Reaction Status Date / Time No Known Allergies Allergy Verified 07/20/24 16:52 Review of Systems Review of Systems: All systems reviewed & are unremarkable except as noted in HPI and below PMFSH Family History Family History (Updated 07/20/24 @ 16:24 by Penny Sales RN) Grandparent Parkinsons disease Social History Social History Smoking status: Never smoker Second hand tobacco smoke exposure: No Alcohol intake: never Substance use: never Substance use type: does not use Spiritual care concerns: No Exam Narrative: General appearance: Well-developed, well-nourished Skin: Normal color , 1+ edema bilaterally, chronic stasis dermatitis, no weeping Head: Normocephalic, nontraumatic Eyes: Clear conjunctiva ENT: Oropharynx normal, ears normal, nose normal Neck: Supple, nontender Chest and respiratory: Airway patent, no respiratory distress, no accessory muscle use Heart: Regular rate/rhythm Abdomen: Soft, nontender, no organomegaly, quiet bowel sounds Vascular: Normal peripheral pulses, normal capillary refill. Neurologic: Alert and oriented to his name only Course Vital Signs Vital signs: Vital Signs Temperature 36.4 C 07/20/24 13:24 Pulse Rate 80 07/20/24 13:24 Respiratory Rate 25 H 07/20/24 13:24 Blood Pressure 136/70 07/20/24 13:24 Pulse Oximetry 93 07/20/24 13:24 Oxygen Delivery Room Air 07/20/24 13:24 Temperature 36.4 C 07/20/24 16:06 Pulse Rate 66 07/20/24 16:06 Respiratory Rate 20 07/20/24 16:06 Blood Pressure 144/70 H 07/20/24 16:06 Pulse Oximetry 94 07/20/24 16:06 Oxygen Delivery Room Air 07/20/24 13:45 MDM - SOB/Dyspnea MDM Narrative Medical decision making narrative: Patient came to the ED from long term with shortness of breath for unknown duration and gaining weight Vital signs showing respiratory rate 25 otherwise insignificant Physical examination showing a patient awake, alert and oriented to his name only, lower extremity edema, does not look in pain or distress Blood workup today includes CBC, CMP, troponin, pro BMP and coags showed creatinine of 1.7 consistent with previous records, pro BMP 19,803, albumin level 2.7 g Chest x-ray showed interstitial edema with cardiomegaly Urine analysis showed evidence of infection EKG showed normal sinus rhythm with LVH criteria Admit to hospitalist for diuresis Diagnosis CHF Differential Diagnosis Differential diagnosis: Likely congestive heart failure and community acquired pneumonia Medical Records Attestation: I reviewed the patient's medical records. Lab Data Attestation: I reviewed the patient's lab results. 07/20/24 13:49 07/20/24 13:49 Labs: Lab Results 07/20/24 07/20/24 Range/Units 13:49 14:02 WBC 9.6 (4.8-10.8) K/mm3 RBC 4.29 L (4.70-6.10) M/mm3 Hgb 12.2 L (12.4-15.3) g/dL Hct 40.0 (37.0-46.0) % MCV 93.2 (78.0-102.0) fL MCH 28.4 (27.0-31.0) pg MCHC 30.5 L (32-36) g/dL RDW 15.7 H (11.6-14.4) % Plt Count 273 (150-420) K/mm3 MPV 10.0 (8.7-11.0) fl Immature Gran % (Auto) 0.4 H (0.0-0.0) % Neut % (Auto) 79.4 H (50.0-70.0) % Lymph % (Auto) 7.1 L (18.0-42.0) % [place] % (Auto) 11.1 H (2.0-11.0) % Eos % (Auto) 1.4 (1.0-6.0) % Baso % (Auto) 0.6 (0.0-1.0) % Lymph # (Auto) 0.68 L (1.10-4.50) K/mm3 [place] # (Auto) 1.06 H (0.10-0.90) K/mm3 Eos # (Auto) 0.13 (0.02-0.50) K/mm3 Baso # (Auto) 0.06 (0.00-0.10) K/mm3 Abs Immat Gran (auto) 0.04 H (0.00-0.00) K/mm3 Absolute Neuts (auto) 7.58 H (1.70-7.20) K/mm3 Absolute Nucleated RBC 0.00 (0.00-0.00) K/mm3 Nucleated RBC % 0.0 (0-0.0) % PT 12.2 H (9.50-12.1) Seconds INR 1.1 APTT 31.6 H (23.9-30.70) Sec Sodium 141 (136-145) mmol/L Potassium 4.4 (3.5-5.1) mmol/L Chloride 106 (98-108) mmol/L Carbon Dioxide 26 (21-32) mmol/L Anion Gap 9 (4-12) mmol/L BUN 32 H (7-18) mg/dL Creatinine 1.72 H (0.70-1.30) mg/dL Estim Creat Clear Calc 58 ml/min Estimated GFR 40 L (59 - ) Glucose 186 H (70-99) mg/dL Calculated Osmolality 303 H (285-295) mOsm/kg Calcium 8.5 (8.5-10.1) mg/dL Total Bilirubin 0.8 (0.00-1.00) mg/dL AST < 10 L (15-37) U/L ALT 10 L (16-63) U/L Alkaline Phosphatase 142 H (46-116) U/L Troponin I 34.8 (0.00-60.4) ng/L NT-Pro-B Natriuret Pep 93213 H (0-125) pg/mL Total Protein 6.9 (6.4-8.2) g/dL Albumin 2.7 L (3.4-5.0) g/dL Urine Color Light yellow (Yellow) Urine Appearance Clear (Clear) Urine pH 6.0 (5.0-8.0) Ur Specific [place] 1.020 (1.010-1.020) Urine Protein 1+ H (Negative) Urine Glucose (UA) Negative (Negative) Urine Ketones Negative (Negative) Ur Blood (Man) Negative (Negative) Urine Nitrate Negative (Negative) Urine Bilirubin Negative (Negative) Urine Urobilinogen 0.2 (0.2-1.0) mg/dL Leukocyte Esterase Rfl Negative (Negative) ALIX/UL Urine RBC None seen (0-2) /hpf Urine WBC None seen (0-3) /hpf Urine Bacteria None seen (None) /hpf ABG Data ABG results: 07/20/24 14:32 Puncture Site Right radial ABG pH 7.45 ABG pCO2 32.0 L ABG pO2 69.9 L ABG HCO3 21.9 L ABG O2 Saturation 94.0 L ABG Base Excess -1.2 L Oxyhemoglobin 93.0 L O2 Delivery Device Room air O2 Liters/Min 0.0 Imaging Data Radiologist's impression: Impressions Chest X-Ray 07/20/24 13:49 Impression: 1: Cardiomegaly with interstitial edema. ECG Data EKG #1: Attestation: I personally reviewed and interpreted this ECG as follows: ECG completion date: 07/20/24 Interpretation: normal sinus rhythm at 73 beats per minute, first-degree heart block with occasional PVCs, left ventricular hypertrophy and ST-T change possible anterior myocardial infarction of indeterminate age, abnormal EKG, no previous EKG available for comparison Critical Care Time Critical Care Time Critical Care Time: No Discharge Plan Discharge Clinical Impression: CHF (congestive heart failure) Patient Disposition: Still a Patient Condition: Stable
[2024-07-20 13:54] LABS: Basophils Absolute Auto 0.06 K/mm3 (0.00-0.10); Basophils Percent Auto 0.6 % (0.0-1.0); Eosinophils Absolute Auto 0.13 K/mm3 (0.02-0.50); Eosinophils Percent Auto 1.4 % (1.0-6.0); Hemoglobin 12.2 g/dL (12.4-15.3); Immature Granulocyte Absolute 0.04 K/mm3 (0.00-0.00); Immature Granulocyte Percent A 0.4 % (0.0-0.0); Lymphocytes Absolute Auto 0.68 K/mm3 (1.10-4.50); Lymphocytes Percent Auto 7.1 % (18.0-42.0); Mean Corpuscular HGB Conc 30.5 g/dL (32-36); Mean Corpuscular Hemoglobin 28.4 pg (27.0-31.0); Mean Corpuscular Volume 93.2 fL (78.0-102.0); Monocytes Absolute Auto 1.06 K/mm3 (0.10-0.90); Monocytes Percent Auto 11.1 % (2.0-11.0); Neutrophils Absolute Auto 7.58 K/mm3 (1.70-7.20); Neutrophils Percent Auto 79.4 % (50.0-70.0); Platelet Count Result 273 K/mm3 (150-420); Red Blood Count 4.29 M/mm3 (4.70-6.10); Red Cell Distribution Width 15.7 % (11.6-14.4); White Blood Count 9.6 K/mm3 (4.8-10.8)
--- OUTSIDE RECORDS SUMMARY | 2024-07-20 14:04 | XMS_ITS | Clinical Summary ---
Author Organization [facility] Address [address] 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
--- OUTSIDE RECORDS SUMMARY | 2024-07-20 14:04 | XMS_ITS | Encounter Summary ---
Author Organization [employer] Address [address] [place] [address] Care Team Providers Care Counter Intelligence Technician Name Role Phone Unavailable Primary Care Provider Unavailabl e Encounter Details Date Type Department Care Team (Latest Contact Info) Description 06/13/2006 Outpatient Historical HIS CARD PACKAGING LINE OPERATOR KELVIN Jacinto, Prabhjot Soriano MD [address] [facility] [address] [place] [address] Other Nonspecific Abnormal Cardiovascular System Function Study (Primary Dx) Social History Tobacco Use Types Packs/Day Years Used Date Smoking Tobacco: Never Assessed Sex and Gender Information Value Date Recorded Sex Assigned at Not on file Legal Sex Male 2:52 AM PHLEBOTOMY LAB ASSISTANT Gender Identity Not on file Sexual Orientation [...]
[2024-07-20 14:09] LABS: INR 1.1; Partial Thromboplastin Time 31.6 Sec (23.9-30.70); Prothrombin Time 12.2 Seconds (9.50-12.1)
[2024-07-20 14:18] LABS: Alanine Aminotransferase 10 U/L (16-63); Albumin Level 2.7 g/dL (3.4-5.0); Alkaline Phosphatase 142 U/L (46-116); Anion Gap 9 mmol/L (4-12); Aspartate Amino Transferase < 10 U/L (15-37); Bilirubin,Total 0.8 mg/dL (0.00-1.00); Blood Urea Nitrogen 32 mg/dL (7-18); Calcium 8.5 mg/dL (8.5-10.1); Carbon Dioxide 26 mmol/L (21-32); Chloride 106 mmol/L (98-108); Estimated CRCL calculation 58 ml/min; Estimated Glomerular Filt Rate 40; Glucose 186 mg/dL (70-99); NT Pro B Type Natriuretic Pept 19803 pg/mL (0-125); Osmolality Calculated 303 mOsm/kg (285-295); Potassium 4.4 mmol/L (3.5-5.1); Sodium 141 mmol/L (136-145); Total Protein 6.9 g/dL (6.4-8.2); Troponin I 34.8 ng/L (0.00-60.4)
[2024-07-20 14:35] LABS: Base Excess ABG -1.2 mmol/L (0-2); HCO3 ABG 21.9 mmol/L (23-29); PO2 ABG 69.9 mmHg (75-85); pH ABG 7.45 (7.35-7.45)
[2024-07-20 14:36] LABS: Device ROOM AIR; Modified Allen's Test Pass; Site Drawn RIGHT RADIAL
[2024-07-20 15:12] LABS: Add Urine Microscopic? YES; Appearance Urine Clear (Clear); Bilirubin Urine Negative (Negative); Blood Urine Negative (Negative); Color Urine Light Yellow (Yellow); Glucose Urine UA Negative (Negative); Ketones Urine Negative (Negative); Leukocyte Esterase Ur Negative LEU/UL (Negative); Nitrate Urine Negative (Negative); Protein Urine 1+ (Negative); Urobilinogen Urine 0.2 mg/dL (0.2-1.0)
[2024-07-20 15:19] LABS: Bacteria Urine None seen /hpf; RBC Urine None seen /hpf (0-2); WBC Urine None seen /hpf (0-3)
[2024-07-20] MEDS: FUROSEMIDE INJ 40 MG/4 ML VIAL IV PUSH ×2 (16:01→18:43)
[2024-07-20 16:56] LABS: Glucose Point of Care 250 mg/dl (65-105)
--- NOTE | 2024-07-20 17:03 | ADMGEN ---
This patient, Joel Alcala, was admitted to 2nd Floor Room 203-1. Patient/family oriented to hospital policies and general routines including ID bracelet, bed and alarms, visiting hours, pain management, procedures, bathroom and other care routines, personal items, smoking policy, room service/diet, and visiting hours. RAYNE Borja in room to assist with questions. Pt has his glasses on Information on how to activate the Rapid Response Team has been discussed. Patient/Family are encouraged to report perceived risks to care and to ask questions if they do not understand what they are told or what they should do.
[2024-07-20 17:15] LABS: Troponin I 36.4 ng/L (0.00-60.4)
[2024-07-20] MEDS: INSULIN GLARGINE (*BKC) 1,000 UNITS/10 ML VIAL 25 UNITS SUB-Q (18:43)
[2024-07-20 20:39] LABS: Glucose Point of Care 185 mg/dl (65-105)
[2024-07-21] VITALS: BP 120/47; PULSE 77; PULSE 86; RESP 20; TEMP 36.3; O2SAT 90
[2024-07-21 04:00] VITALS: PULSE 81
[2024-07-21 05:48] LABS: Basophils Absolute Auto 0.07 K/mm3 (0.00-0.10); Basophils Percent Auto 0.7 % (0.0-1.0); Eosinophils Absolute Auto 0.19 K/mm3 (0.02-0.50); Eosinophils Percent Auto 1.9 % (1.0-6.0); Hematocrit 41.7 % (37.0-46.0); Hemoglobin 12.7 g/dL (12.4-15.3); Immature Granulocyte Absolute 0.04 K/mm3 (0.00-0.00); Immature Granulocyte Percent A 0.4 % (0.0-0.0); Lymphocytes Absolute Auto 0.57 K/mm3 (1.10-4.50); Lymphocytes Percent Auto 5.8 % (18.0-42.0); Mean Corpuscular HGB Conc 30.5 g/dL (32-36); Mean Corpuscular Hemoglobin 28.1 pg (27.0-31.0); Mean Corpuscular Volume 92.3 fL (78.0-102.0); Mean Platelet Volume 9.5 fl (8.7-11.0); Monocytes Absolute Auto 1.11 K/mm3 (0.10-0.90); Monocytes Percent Auto 11.3 % (2.0-11.0); Neutrophils Absolute Auto 7.81 K/mm3 (1.70-7.20); Neutrophils Percent Auto 79.9 % (50.0-70.0); Platelet Count Result 283 K/mm3 (150-420); Red Blood Count 4.52 M/mm3 (4.70-6.10); Red Cell Distribution Width 15.6 % (11.6-14.4); White Blood Count 9.8 K/mm3 (4.8-10.8)
[2024-07-21 06:05] LABS: Alanine Aminotransferase 8 U/L (16-63); Albumin Level 2.6 g/dL (3.4-5.0); Alkaline Phosphatase 137 U/L (46-116); Anion Gap 7 mmol/L (4-12); Aspartate Amino Transferase < 10 U/L (15-37); Bilirubin,Total 0.9 mg/dL (0.00-1.00); Blood Urea Nitrogen 35 mg/dL (7-18); Carbon Dioxide 29 mmol/L (21-32); Chloride 106 mmol/L (98-108); Estimated CRCL calculation 61 ml/min; Estimated Glomerular Filt Rate 42; Glucose 158 mg/dL (70-99); Magnesium 1.7 mg/dL (1.8-2.4); Osmolality Calculated 305 mOsm/kg (285-295); Sodium 142 mmol/L (136-145); Total Protein 6.9 g/dL (6.4-8.2)
[2024-07-21 08:00] VITALS: BP 122/43; PULSE 71; PULSE 82; RESP 17; TEMP 35.8; O2SAT 92
[2024-07-21] MEDS: FUROSEMIDE INJ 40 MG/4 ML VIAL IV PUSH ×2 (09:43→17:24)
[2024-07-21] MEDS: EZETIMIBE 10 MG TABLET PO (09:43)
[2024-07-21] MEDS: FERROUS SULFATE 325 MG TABLET DR BY MOUTH (09:43)
[2024-07-21] MEDS: ASCORBIC ACID 250 MG TABLET PO (09:43)
[2024-07-21] MEDS: FLUoxetine HCL 20 MG CAPSULE PO (09:43)
[2024-07-21] MEDS: CLOPIDOGREL BISULFATE 75 MG TABLET PO (09:43)
[2024-07-21] MEDS: PANTOPRAZOLE 40 MG TABLET PO ×2 (09:43→20:04)
[2024-07-21] MEDS: ENOXAPARIN 40 MG/0.4 ML SYRINGE SUB-Q (09:44)
[2024-07-21] MEDS: FLUoxetine HCL 10 MG CAPSULE PO (09:44)
[2024-07-21] MEDS: MAGNESIUM SULF 2 GM/WATER 50ML 2 GM/50 ML BAG IVPB (11:16)
--- NOTE | 2024-07-21 11:26 | PM.IMHP ---
H&P: HPI History of Present Illness Date/Time: 07/21/24 11:26 Chief Complaint: lower extremity edema Narrative: This is a 69-year-old male with a significant past medical history of dementia, CHF, hyperlipidemia, hypertension, GERD, arthritis, anemia, type 2 diabetes mellitus who presented to the hospital with complaints of lower extremity edema. Patient denies any fever, chills, nausea, vomiting, diarrhea, abdominal pain, chest pain, shortness a breath. He does have some notable redness and warmth to his left lower extremity with a few ulcerated wounds. Workup in the hospital included a chest x-ray which showed airspace opacity medial right lung base representing atelectasis versus pneumonia, right pleural effusion, cardiomegaly, pulmonary vascular congestion. initial labs showed a normal white blood cell count of 9.6, hemoglobin 12.2, INR 1.1, creatinine 1.72, EGFR 40, blood glucose 186-250, alkaline phosphate 142, troponin 34.8> 36.4, proBNP 25170. UA was obtained which showed 1+ urine protein otherwise negative. EKG showed sinus rhythm with first-degree AV block with a rate of 73, QTC 483. Patient was started on IV Lasix 40 mg IV push b.i.d.. Review of Systems Review of Systems: All systems reviewed & are unremarkable except as noted in HPI and below Eyes: Comments: nystagmus PMFSH Past Medical History Medical History History of cellulitis Anemia Type 2 diabetes mellitus Arthritis GERD (gastroesophageal reflux disease) Hypertension Hyperlipidemia Dementia Family History Family History Grandparent Parkinsons disease Social History Social History Smoking status: Never smoker Second hand tobacco smoke exposure: No Alcohol intake: never Substance use: never Substance use type: does not use Spiritual care concerns: No Meds Home Medications and Allergies Home Medications ?Medication ?Instructions ?Recorded ?Confirmed ?Type acetaminophen 500 mg tablet 500 mg PO .Q8HR PRN pain 07/20/24 07/20/24 History acetaminophen 500 mg tablet 1,000 mg PO QAM PRN pain (scale 07/20/24 07/20/24 History (Tylenol Extra Strength) score 1-3) ascorbic acid (vitamin C) 250 mg 250 mg PO DAILY 07/20/24 07/20/24 History tablet atorvastatin 40 mg tablet (Lipitor) 40 mg PO HS 07/20/24 07/20/24 History clopidogrel 75 mg tablet 75 mg PO DAILY 07/20/24 07/20/24 History diphenhydramine 25 1 tablet PO HS PRN sleep 07/20/24 07/20/24 History mg-acetaminophen 500 mg tablet (Tylenol PM Extra Strength) ergocalciferol (vitamin D2) 50 mcg 50 mcg PO DAILY 07/20/24 07/20/24 History (2,000 unit) capsule ezetimibe 10 mg tablet 10 mg PO DAILY 07/20/24 07/20/24 History ferrous sulfate 325 mg (65 mg 325 mg PO DAILY 07/20/24 07/20/24 History iron) tablet fluoxetine 10 mg tablet 10 mg PO DAILY 07/20/24 07/20/24 History fluoxetine 20 mg capsule 20 mg PO DAILY 07/20/24 07/20/24 History furosemide 40 mg tablet 40 mg PO DAILY 07/20/24 07/20/24 History insulin glargine 100 unit/mL 25 unit subcut QPM 07/20/24 07/20/24 History subcutaneous solution (Lantus U-100 Insulin) pantoprazole 40 mg tablet,delayed 40 mg PO BID 07/20/24 07/20/24 History release semaglutide 2 mg/dose (8 mg/3 mL) 2 mg subcut WEEKLY 07/20/24 07/20/24 History subcutaneous pen injector (Ozempic) tamsulosin 0.4 mg capsule 0.4 mg PO HS 07/20/24 07/20/24 History tramadol 50 mg tablet 50 mg PO Q6H PRN pain 07/20/24 07/20/24 History Allergies Allergy/AdvReac Type Severity Reaction Status Date / Time No Known Allergies Allergy Verified 07/20/24 16:52 Vital Signs Vital Signs - 24 hr 07/20/24 13:24 07/20/24 13:45 07/20/24 14:00 Temperature 97.6 F Pulse Rate 80 69 Respiratory Rate 25 H 20 Blood Pressure 136/70 130/66 Pulse Oximetry 93 94 93 Oxygen Delivery Room Air Room Air 07/20/24 14:30 04/18/25 15:00 07/20/24 15:30 Temperature Pulse Rate 70 72 75 Respiratory Rate 19 17 19 Blood Pressure 138/82 143/81 H 125/88 Pulse Oximetry 91 92 92 Oxygen Delivery 07/20/24 16:00 07/20/24 16:06 07/20/24 17:00 Temperature 97.6 F 96.1 F L Pulse Rate 66 66 76 Respiratory Rate 20 20 18 Blood Pressure 144/70 H 144/70 H 126/48 L Pulse Oximetry 94 94 92 Oxygen Delivery Room Air 07/20/24 20:00 07/21/24 00:00 07/21/24 00:00 Temperature 97.3 F L Pulse Rate 82 77 86 Respiratory Rate 20 Blood Pressure 120/47 L Pulse Oximetry 90 Oxygen Delivery 07/21/24 04:00 07/21/24 08:00 Temperature 96.5 F L Pulse Rate 81 71 Respiratory Rate 17 Blood Pressure 122/43 L Pulse Oximetry 92 Oxygen Delivery Room Air Exam Narrative: General: In no acute distress, well nourished Head: atraumatic, no encephalopathy Eyes: PERRLA, sclera clear, wears glasses, nystagmus present ENT: moist mucous membranes, nasal passages clear Neck: supple, no JVD, no adenopathy, trachea midline Cardiac: Normal S1 and S2. No murmur, gallops or friction rubs, peripheral pulses intact. Respiratory: no adventitious lung sounds, crackles noted to bilateral lower bases, currently on room air Gastrointestinal: soft, non-distended, non-tender, normoactive bowel sounds. : voiding without difficulty. Extremities: moves all extremities well, 1+ edema bilateral lower extremity Skin: Redness and warmth to left lower extremity with a few ulcerated areas and a dressing in place to the anterior luevano. Neuro: Alert, cranial nerves intact, no neuro deficits. H&P: Results Labs Labs: Short CBC 07/20/24 07/21/24 Range/Units 13:49 05:32 WBC 9.6 9.8 (4.8-10.8) K/mm3 Hgb 12.2 L 12.7 (12.4-15.3) g/dL Hct 40.0 41.7 (37.0-46.0) % Plt Count 273 283 (150-420) K/mm3 [facility] 07/20/24 07/21/24 13:49 05:32 Sodium 141 142 Potassium 4.4 4.0 Chloride 106 106 Carbon Dioxide 26 29 BUN 32 H 35 H Creatinine 1.72 H 1.63 H Glucose 186 H 158 H Calcium 8.5 9.0 Cardiac Enzymes 07/20/24 07/20/24 Range/Units 13:49 16:49 Troponin I 34.8 36.4 (0.00-60.4) ng/L Liver Function 07/20/24 07/21/24 Range/Units 13:49 05:32 Total Bilirubin 0.8 0.9 (0.00-1.00) mg/dL AST < 10 L < 10 L (15-37) U/L ALT 10 L 8 L (16-63) U/L Alkaline Phosphatase 142 H 137 H (46-116) U/L Albumin 2.7 L 2.6 L (3.4-5.0) g/dL Urine 07/20/24 Range/Units 14:02 Urine Color Light yellow (Yellow) Urine Appearance Clear (Clear) Urine pH 6.0 (5.0-8.0) Ur Specific [place] 1.020 (1.010-1.020) Urine Protein 1+ H (Negative) Urine Glucose (UA) Negative (Negative) Imaging Chest x-ray: Radiologist's impression: EXAMINATION: XR chest 1V portable DATE: 07/21/2024 09:56 INDICATION: Congestive heart failure TECHNIQUE: frontal view of the chest was obtained. COMPARISON: Chest radiograph dated 07/20/2024 FINDINGS: Cardiomegaly with pulmonary vascular congestion. Improved aeration in the left lower lung zone. Minimal right pleural effusion along the minor fissure. Airspace opacity medial right lung base which could represent atelectasis or pneumonia. No pneumothorax. IMPRESSION: 1. Airspace opacity medial right lung base which could represent atelectasis or pneumonia. 2. Minimal right pleural effusion along the minor fissure. 3. Cardiomegaly. Reviewed, dictated and finalized at location A. Assessment and Plan Assessment and plan (1) Cellulitis: Code(s): L03.90 - Cellulitis, unspecified Status: Acute Assessment and Plan: left lower extremity with redness warmth and swelling, open ulcerations noted Will start Keflex p.o. (2) Acute exacerbation of CHF (congestive heart failure): Code(s): I50.9 - Heart failure, unspecified Status: Acute Assessment and Plan: continue Lasix 40 mg IV push b.i.d. (3) Hypertension: Code(s): I10 - Essential (primary) hypertension Status: Acute Assessment and Plan: blood pressure ranging 120/47 to 144/70 not currently on any home medications for blood pressure continue to monitor for now (4) Hyperlipidemia: Code(s): E78.5 - Hyperlipidemia, unspecified Status: Acute Assessment and Plan: continue atorvastatin (5) Type 2 diabetes mellitus: Code(s): E11.9 - Type 2 diabetes mellitus without complications Status: Acute Assessment and Plan: Blood sugars ranging 158-250 Hgb A1C 8.0 Accu checks AC/HS high-dose SSI ordered continue Lantus 25 units at bedtime added 8 units mealtime insulin hypoglycemic protocol in place Diabetic diet ordered (6) GERD (gastroesophageal reflux disease): Code(s): K21.9 - Gastro-esophageal reflux disease without esophagitis Status: Acute Assessment and Plan: continue Protonix (7) Chronic kidney disease: Code(s): N18.9 - Chronic kidney disease, unspecified Status: Acute Assessment and Plan: initial creatinine 1.72, EGFR 40 baseline creatinine ranges 1.47 to 1.63 creatinine today is down to 1.63 continue to trend Quality VTE Prophylaxis VTE prophylaxis: pharmacologic ordered Hospitalist [facility] Advance Care Plan I have confirmed that the patient's Advanced Care Plan is present, code status is documented, or surrogate decision maker is listed in patient medical record.: Yes Medication Reconciliation I have utilized all available resources to obtain, update and review the patients current medications (includes all prescriptions, OTC, herbals, cannabis, and nutritional supplements).: Yes
[2024-07-21 12:00] VITALS: PULSE 71
[2024-07-21 12:04] LABS: Glucose Point of Care 192 mg/dl (65-105)
[2024-07-21] MEDS: CEPHALEXIN 500 MG CAPSULE PO ×2 (12:41→17:24)
[2024-07-21 16:00] VITALS: BP 128/62; PULSE 73; PULSE 76; RESP 17; TEMP 36.7; O2SAT 96
[2024-07-21 17:00] LABS: Glucose Point of Care 187 mg/dl (65-105)
[2024-07-21] MEDS: INSULIN GLARGINE (*BKC) 1,000 UNITS/10 ML VIAL 25 UNITS SUB-Q (17:24)
[2024-07-21 19:53] VITALS: PULSE 79
[2024-07-21] MEDS: ATORVASTATIN 40 MG TABLET PO (20:04)
[2024-07-21] MEDS: TOLNAFTATE 1% POWDER 45 GM BTL 1 APPLIC TOPICAL (20:04)
[2024-07-21] MEDS: TAMSULOSIN HCL 0.4 MG CAPSULE PO (20:04)
[2024-07-21 20:15] LABS: Glucose Point of Care 184 mg/dl (65-105)
[2024-07-22] VITALS: BP 129/65; PULSE 73; PULSE 82; RESP 20; TEMP 36.6; O2SAT 90
[2024-07-22] MEDS: CEPHALEXIN 500 MG CAPSULE PO ×2 (00:21→06:04)
[2024-07-22 03:56] VITALS: PULSE 77
[2024-07-22 06:29] LABS: Basophils Absolute Auto 0.06 K/mm3 (0.00-0.10); Basophils Percent Auto 0.7 % (0.0-1.0); Eosinophils Absolute Auto 0.16 K/mm3 (0.02-0.50); Eosinophils Percent Auto 1.8 % (1.0-6.0); Hematocrit 40.5 % (37.0-46.0); Hemoglobin 12.6 g/dL (12.4-15.3); Immature Granulocyte Absolute 0.03 K/mm3 (0.00-0.00); Immature Granulocyte Percent A 0.3 % (0.0-0.0); Lymphocytes Absolute Auto 0.56 K/mm3 (1.10-4.50); Lymphocytes Percent Auto 6.3 % (18.0-42.0); Mean Corpuscular HGB Conc 31.1 g/dL (32-36); Mean Corpuscular Hemoglobin 28.5 pg (27.0-31.0); Mean Corpuscular Volume 91.6 fL (78.0-102.0); Mean Platelet Volume 9.9 fl (8.7-11.0); Monocytes Absolute Auto 0.98 K/mm3 (0.10-0.90); Neutrophils Absolute Auto 7.09 K/mm3 (1.70-7.20); Neutrophils Percent Auto 79.9 % (50.0-70.0); Platelet Count Result 288 K/mm3 (150-420); Red Blood Count 4.42 M/mm3 (4.70-6.10); Red Cell Distribution Width 15.5 % (11.6-14.4); White Blood Count 8.9 K/mm3 (4.8-10.8)
[2024-07-22 06:46] LABS: Alanine Aminotransferase 17 U/L (16-63); Albumin Level 2.7 g/dL (3.4-5.0); Alkaline Phosphatase 131 U/L (46-116); Anion Gap 8 mmol/L (4-12); Aspartate Amino Transferase 14 U/L (15-37); Blood Urea Nitrogen 34 mg/dL (7-18); Calcium 8.4 mg/dL (8.5-10.1); Carbon Dioxide 31 mmol/L (21-32); Chloride 104 mmol/L (98-108); Estimated CRCL calculation 61 ml/min; Estimated Glomerular Filt Rate 43; Glucose 142 mg/dL (70-99); Osmolality Calculated 305 mOsm/kg (285-295); Potassium 4.1 mmol/L (3.5-5.1); Sodium 143 mmol/L (136-145); Total Protein 6.4 g/dL (6.4-8.2)
[2024-07-22 08:00] VITALS: BP 140/59; PULSE 74; RESP 17; TEMP 35.5; O2SAT 91
[2024-07-22] MEDS: ENOXAPARIN 40 MG/0.4 ML SYRINGE SUB-Q (09:34)
[2024-07-22] MEDS: CLOPIDOGREL BISULFATE 75 MG TABLET PO (09:34)
[2024-07-22] MEDS: ASCORBIC ACID 250 MG TABLET PO (09:34)
[2024-07-22] MEDS: FLUoxetine HCL 20 MG CAPSULE PO (09:35)
[2024-07-22] MEDS: FUROSEMIDE INJ 40 MG/4 ML VIAL IV PUSH (09:35)
[2024-07-22] MEDS: PANTOPRAZOLE 40 MG TABLET PO (09:35)
[2024-07-22] MEDS: FLUoxetine HCL 10 MG CAPSULE PO (09:35)
[2024-07-22] MEDS: TOLNAFTATE 1% POWDER 45 GM BTL 1 APPLIC TOPICAL (09:35)
[2024-07-22] MEDS: EZETIMIBE 10 MG TABLET PO (09:35)
[2024-07-22] MEDS: FERROUS SULFATE 325 MG TABLET DR BY MOUTH (09:35)
--- NOTE | 2024-07-22 10:42 | P.DS_ITS ---
DS: Admitting Diagnosis Discharge Date 07/22/24 Admitting Diagnosis cellulitis acute exacerbation of CHF hypertension hyperlipidemia type 2 diabetes mellitus GERD chronic kidney disease DS: Discharge Diagnosis Discharge Diagnosis (1) Cellulitis: Code(s): L03.90 - Cellulitis, unspecified Status: Acute Assessment and Plan: * left lower extremity with redness warmth and swelling, open ulcerations noted * Will start Keflex p.o. (2) Acute exacerbation of CHF (congestive heart failure): Code(s): I50.9 - Heart failure, unspecified Status: Acute Assessment and Plan: * continue Lasix 40 mg IV push b.i.d. (3) Hypertension: Code(s): I10 - Essential (primary) hypertension Status: Acute Assessment and Plan: * blood pressure ranging 120/47 to 144/70 * not currently on any home medications for blood pressure * continue to monitor for now (4) Hyperlipidemia: Code(s): E78.5 - Hyperlipidemia, unspecified Status: Acute Assessment and Plan: * continue atorvastatin (5) Type 2 diabetes mellitus: Code(s): E11.9 - Type 2 diabetes mellitus without complications Status: Acute Assessment and Plan: * Blood sugars ranging 158-250 * Hgb A1C 8.0 * Accu checks AC/HS * high-dose SSI ordered * continue Lantus 25 units at bedtime * added 8 units mealtime insulin * hypoglycemic protocol in place * Diabetic diet ordered (6) GERD (gastroesophageal reflux disease): Code(s): K21.9 - Gastro-esophageal reflux disease without esophagitis Status: Acute Assessment and Plan: * continue Protonix (7) Chronic kidney disease: Code(s): N18.9 - Chronic kidney disease, unspecified Status: Acute Assessment and Plan: * initial creatinine 1.72, EGFR 40 * baseline creatinine ranges 1.47 to 1.63 * creatinine today is down to 1.63 * continue to trend DS: Summary Hospital Course Reason for hospitalization: cellulitis acute exacerbation of CHF hypertension hyperlipidemia type 2 diabetes mellitus GERD chronic kidney disease Hospital Course: This is a 69-year-old male with a significant past medical history of dementia, CHF, hyperlipidemia, hypertension, GERD, arthritis, anemia, type 2 diabetes mellitus who presented to the hospital with complaints of lower extremity edema. Patient denies any fever, chills, nausea, vomiting, diarrhea, abdominal pain, chest pain, shortness a breath. He does have some notable redness and warmth to his left lower extremity with a few ulcerated wounds. Workup in the hospital included a chest x-ray which showed airspace opacity medial right lung base representing atelectasis versus pneumonia, right pleural effusion, cardiomegaly, pulmonary vascular congestion. initial labs showed a normal white blood cell count of 9.6, hemoglobin 12.2, INR 1.1, creatinine 1.72, EGFR 40, blood glucose 186-250, alkaline phosphate 142, troponin 34.8> 36.4, proBNP 38104. UA was obtained which showed 1+ urine protein otherwise negative. EKG showed sinus rhythm with first-degree AV block with a rate of 73, QTC 483. Patient was started on IV Lasix 40 mg IV push b.i.d.. patient was given IV Lasix 40 mg IV push twice a day while here with improvement in his edema. patient also was noted to have left lower extremity erythema warmth tenderness resembling cellulitis. He was started on Keflex and will need to finish course. He is stable for discharge at this time. He will need to follow up with his primary care doctor in 1 week. Final diagnosis: cellulitis, acute exacerbation of CHF Status at Discharge Cognitive/behavioral status at discharge: alert and oriented x3 Functional status at discharge: wheelchair bound Overall status at discharge: patient is progressing back to baseline Time Spent with Patient Time attestation: Total time spent providing and/or coordinating discharge services: Time spent: Greater than 30 minutes Exam Narrative: General: In no acute distress, well nourished Cardiac: Normal S1 and S2. No murmur, gallops or friction rubs, peripheral pulses intact. Respiratory: no adventitious lung sounds, lungs clear, currently on room air Gastrointestinal: soft, non-distended, non-tender, normoactive bowel sounds. : voiding without difficulty. Extremities: moves all extremities well, 1+ edema bilateral lower extremity Skin: Redness and warmth to left lower extremity with a few ulcerated areas and a dressing in place to the anterior luevano. Neuro: Alert and oriented x3 DS: Data Data Completed and Pending Completed studies during hospitalization: chest x-ray x3 Pending studies at discharge: none Labs on day of discharge: Labs from last 24 hours 07/22/24 07/21/24 07/21/24 06:20 20:13 16:55 WBC 8.9 RBC 4.42 L Hgb 12.6 Hct 40.5 MCV 91.6 MCH 28.5 MCHC 31.1 L RDW 15.5 H Plt Count 288 MPV 9.9 Immature Gran % (Auto) 0.3 H Neut % (Auto) 79.9 H Lymph % (Auto) 6.3 L [place] % (Auto) 11.0 Eos % (Auto) 1.8 Baso % (Auto) 0.7 Lymph # (Auto) 0.56 L [place] # (Auto) 0.98 H Eos # (Auto) 0.16 Baso # (Auto) 0.06 Abs Immat Gran (auto) 0.03 H Absolute Neuts (auto) 7.09 Absolute Nucleated RBC 0.00 Nucleated RBC % 0.0 Sodium 143 Potassium 4.1 Chloride 104 Carbon Dioxide 31 Anion Gap 8 BUN 34 H Creatinine 1.60 H Estim Creat Clear Calc 61 Estimated GFR 43 L Glucose 142 H POC Capillary Glucose 184 H 187 H Calculated Osmolality 305 H Calcium 8.4 L Total Bilirubin 1.0 AST 14 L ALT 17 Alkaline Phosphatase 131 H Total Protein 6.4 Albumin 2.7 L 07/21/24 11:59 WBC RBC Hgb Hct MCV MCH MCHC RDW Plt Count MPV Immature Gran % (Auto) Neut % (Auto) Lymph % (Auto) [place] % (Auto) Eos % (Auto) Baso % (Auto) Lymph # (Auto) [place] # (Auto) Eos # (Auto) Baso # (Auto) Abs Immat Gran (auto) Absolute Neuts (auto) Absolute Nucleated RBC Nucleated RBC % Sodium Potassium Chloride Carbon Dioxide Anion Gap BUN Creatinine Estim Creat Clear Calc Estimated GFR Glucose POC Capillary Glucose 192 H Calculated Osmolality Calcium Total Bilirubin AST ALT Alkaline Phosphatase Total Protein Albumin Procedures/Treatments: none Discharge Plan Discharge Attending physician on discharge: Reji Castaneda Discharging Clinician: Penny Reza Anticipated Discharge Date/Time: 07/22/24 10:36 Patient Disposition: Home Activity: as tolerated Diet: as tolerated and diabetic Wound Care Instructions: other - see discharge instructions Discharge Instructions: * If initial your antibiotic for your cellulitis even if you are feeling better * follow-up with your primary care doctor in 1 week * apply tolnaftate powder to groin twice a day Patient Instructions: Antibiotic Form, Cephalexin (By mouth), Heart Failure (DC), Cellulitis (GEN) Patient Language: Romanian Stand Alone Forms: General Discharge Information Follow-up/Referrals: Jaxon Angel MD [Primary Care Provider] - 1 week Discharge Medications: New cephalexin 500 mg Capsule 500 mg PO Q6HR Qty: 26 0RF tolnaftate 1 % Powder 1 applic topical Q12HR Qty: 1 0RF Continued ferrous sulfate 325 mg (65 mg iron) tablet 325 mg PO DAILY ascorbic acid (vitamin C) 250 mg tablet 250 mg PO DAILY Ozempic 2 mg/dose (8 mg/3 mL) pen injector 2 mg subcut WEEKLY Patient Comments: taken every tuesday ezetimibe 10 mg tablet 10 mg PO DAILY pantoprazole 40 mg tablet,delayed release (DR/EC) 40 mg PO BID clopidogrel 75 mg tablet 75 mg PO DAILY acetaminophen [Tylenol Extra Strength] 500 mg tablet 1,000 mg PO QAM PRN (Reason: pain (scale score 1-3)) fluoxetine 20 mg capsule 20 mg PO DAILY fluoxetine 10 mg tablet 10 mg PO DAILY furosemide 40 mg tablet 40 mg PO DAILY acetaminophen 500 mg tablet 500 mg PO .Q8HR PRN (Reason: pain) insulin glargine [Lantus U-100 Insulin] 100 unit/mL solution 25 unit subcut QPM atorvastatin [Lipitor] 40 mg tablet 40 mg PO HS tamsulosin 0.4 mg capsule 0.4 mg PO HS ergocalciferol (vitamin D2) 50 mcg (2,000 unit) capsule 50 mcg PO DAILY diphenhydramine-acetaminophen [Tylenol PM Extra Strength] 25-500 mg tablet 1 tablet PO HS PRN (Reason: sleep) tramadol 50 mg tablet 50 mg PO Q6H PRN (Reason: pain) Date of admission: 07/21/24 09:04 Primary Care Provider: Jaxon Angel Admitting Provider: Reji Castaneda Attending physician on admission: Reji Castaneda Condition: Improved Quality VTE Prophylaxis VTE prophylaxis: pharmacologic ordered Hospitalist [facility] Heart Failure (Exclusion) Patient has history of Heart Transplant or Left Ventricular Assistive Device?: No IF YES, STOP HERE Heart Failure (Qualifier) Patient has current or prior documentation of LVEF less than or equal to 40%, or mod/servere depressed LVSF?: No IF NO, STOP HERE
[2024-07-22 11:52] LABS: Glucose Point of Care 180 mg/dl (65-105)
--- NOTE | 2024-07-22 12:35 | PC.NURSE ---
Report called to [facility]. Spoke with Miranda. All questions answered. Pt being escorted by [facility] staff in his personal wheelchair.
--- NOTE | 2024-07-27 12:41 | PC.NURSE ---
Patient resides at longterm facility. No Discharge Call Back made.
== END 2024-07-22 12:40 | disposition home or self-care (01) | DRG 292 ==
LOC: CHSED 15:28 → CHS2ND 15:47
PROVIDERS: Nurse Practitioner Acute Care; Admitting Provider Internal Medicine; Emergency Provider Emergency Medicine; PCP Family Medicine; Visit Provider Internal Medicine
DX: I13.0 Hypertensive heart and chronic kidney disease with heart failure and stage 1 through stage 4 chronic kidney disease, or unspecified chronic kidney disease (principal); L03.116 Cellulitis of left lower limb; I50.9 Heart failure, unspecified; N18.9 Chronic kidney disease, unspecified; E11.22 Type 2 diabetes mellitus with diabetic chronic kidney disease; E78.5 Hyperlipidemia, unspecified; K21.9 Gastro-esophageal reflux disease without esophagitis; M19.90 Unspecified osteoarthritis, unspecified site; F32.A Depression, unspecified; Z99.3 Dependence on wheelchair
CPT/HCPCS: 36415; 36600; 71045; 80053; 81001; 82805; 82948; 83735; 83880; 84484; 85025; 85610; 85730; 93005; 96374; 99285; A9270; G0378; J1650; J1815; J1938; J3475

== ENCOUNTER 2024-07-27 10:04 | Outpatient (CLI) | payer MEDICARE, SELFPAY ==
[2024-07-27 10:20] LABS: Hemoglobin 11.9 g/dL (12.4-15.3); Mean Corpuscular HGB Conc 29.8 g/dL (32-36); Mean Corpuscular Hemoglobin 28.1 pg (27.0-31.0); Mean Corpuscular Volume 94.6 fL (78.0-102.0); Mean Platelet Volume 9.8 fl (8.7-11.0); Platelet Count Result 309 K/mm3 (150-420); Red Blood Count 4.23 M/mm3 (4.70-6.10); Red Cell Distribution Width 14.9 % (11.6-14.4)
--- OUTSIDE RECORDS SUMMARY | 2024-07-27 10:25 | XMS_ITS | Clinical Summary ---
[facility] Address [address] 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
--- OUTSIDE RECORDS SUMMARY | 2024-07-27 10:25 | XMS_ITS | Encounter Summary ---
Author Organization [facility] Address 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
[2024-07-27 11:09] LABS: Alanine Aminotransferase 11 U/L (16-63); Albumin Level 2.9 g/dL (3.4-5.0); Alkaline Phosphatase 142 U/L (46-116); Anion Gap 8 mmol/L (4-12); Aspartate Amino Transferase 11 U/L (15-37); Bilirubin,Total 0.9 mg/dL (0.00-1.00); Blood Urea Nitrogen 37 mg/dL (7-18); Calcium 7.9 mg/dL (8.5-10.1); Carbon Dioxide 29 mmol/L (21-32); Chloride 103 mmol/L (98-108); Estimated Glomerular Filt Rate 38; Glucose 310 mg/dL (70-99); Osmolality Calculated 310 mOsm/kg (285-295); Potassium 4.6 mmol/L (3.5-5.1); Sodium 140 mmol/L (136-145); Total Protein 6.6 g/dL (6.4-8.2)
== END 2024-07-27 10:05 | disposition home or self-care (01) ==
LOC: CHSLAB 10:06
PROVIDERS: PCP Family Medicine; Visit Provider Family Medicine
DX: E11.22 Type 2 diabetes mellitus with diabetic chronic kidney disease (principal); I50.32 Chronic diastolic (congestive) heart failure; I87.311 Chronic venous hypertension (idiopathic) with ulcer of right lower extremity
CPT/HCPCS: 36415; 80053; 85027

== ENCOUNTER 2024-07-31 11:45 | Outpatient (CLI) | payer MEDICARE, SELFPAY ==
--- NOTE | 2024-07-31 11:52 | ECHO_ITS ---
Patient Info Name: Joel Alcala Age: 69 years : 1955 Gender: Male Ht: 72 in Wt: 320 lbs BSA: 2.78 m2 HR: 68 bpm BP: 97 / 66 mmHg Technical Quality: Poor Exam Date: 07/31/2024 12:12 PM Exam Location: Echo Lab Patient Status: Outpatient Admit Date: 07/31/2024 Staff Ordering Physician: Jaxon Angel MD Software Engineering Specialist: Swathi Mg RDCS Attending Provider: Jaxon Angel MD Referring Physician: Jeanne BELLO; Exam Type: CA echo doppler color flow Study Info Indications - Edema Complete two-dimensional, color flow and Doppler transthoracic echocardiogram is performed. Summary 1. Complete two-dimensional, color flow and Doppler transthoracic echocardiogram is performed. 2. Technically suboptimal study due to poor sonographic images. Patient refused definity contrast. 3. Left ventricular chamber dimension is normal. 4. Left ventricular systolic function is mildly reduced, estimated at 45-50%. 5. There is mild concentric increased left ventricular wall thickness. 6. The left ventricular diastolic function is abnormal. 7. E/e' 15 is elevated. 8. Left atrial chamber dimension is moderately enlarged. 9. The aortic valve is not well visualized. Cannot determine number of aortic valve leaflets. 10. There is severe aortic valve stenosis based on a peak velocity of 307 cm/s, mean gradient of 21 mmHg, and aortic valve area of 0.7 cm2. 11. There is severe aortic valve sclerosis. 12. There is mild mitral valve regurgitation. 13. No pulmonary hypertension, estimated pulmonary arterial systolic pressure is 28 mmHg. Left Ventricle Technically suboptimal study due to poor sonographic images. Patient refused definity contrast. Left ventricular chamber dimension is normal. Left ventricular systolic function is mildly reduced, estimated at 45-50%. There is mild concentric increased left ventricular wall thickness. The left ventricular diastolic function is abnormal. E/e' 15 is elevated. Right Ventricle Right ventricular chamber dimension is not well visualized. Left Atria Left atrial chamber dimension is moderately enlarged. Right Atria Right atrial chamber dimension is not well visualized. Aortic Valve The aortic valve is not well visualized. Cannot determine number of aortic valve leaflets. There is severe aortic valve stenosis based on a peak velocity of 307 cm/s, mean gradient of 21 mmHg, and aortic valve area of 0.7 cm2. There is severe aortic valve sclerosis. There is no aortic valve regurgitation. Pulmonic Valve There is no pulmonic regurgitation. Mitral Valve There is no mitral valve stenosis. There is mild mitral valve regurgitation. Tricuspid Valve There is no tricuspid valve regurgitation. No pulmonary hypertension, estimated pulmonary arterial systolic pressure is 28 mmHg. Pericardium/Pleural There is no pericardial effusion. Inferior Vena Cava Normal inferior vena cava with >50% collapse upon inspiration consistent with normal right atrial pressure, 5 mmHg. Aorta The aortic root size at the sinus of Valsalva is normal. Left Ventricular Outflow Tract Name Value Normal LVOT 2D LVOT Diameter 2.0 cm LVOT Doppler LVOT Peak Velocity 66 cm/s LVOT Peak Gradient 2 mmHg LVOT Mean Gradient 1 mmHg LVOT VTI 15 cm LVOT VTI/AV VTI Ratio 0.2 LVOT Stroke Volume 49 ml LVOT CO 8.9 l/min LVOT CI 3.2 l/min/m2 Pulmonic Valve Name Value Normal RVOT Doppler RVOT Peak Gradient 1 mmHg PV Doppler PV Peak Velocity 77 cm/s PV Peak Gradient 2 mmHg Mitral Valve Name Value Normal MV Doppler MV Decel [place] 481 cm/s2 MV PHT 57 ms MV Area (PHT) 3.9 cm2 4.0-5.0 MV Diastolic Function MV E Peak Velocity 94 cm/s MV A Peak Velocity 41 cm/s MV E/A 2.3 MV Decel Time 195 ms MV Annular TDI MV Septal e' Velocity 4.5 cm/s >=8.0 MV E/e' (Septal) 20.8 <=8.0 MV Lateral e' Velocity 7.9 cm/s >=10.0 MV E/e' (Lateral) 11.8 <=8.0 MV e' Average 6.22 MV E/e' (Average) 16.3 Tricuspid Valve Name Value Normal TV Regurgitation Doppler TR Peak Velocity 239 cm/s TR Peak Gradient 23 mmHg Estimated PAP/RSVP RA Pressure 5 mmHg <=5 PA Systolic Pressure 28 mmHg <36 RV Systolic Pressure 28 mmHg <36 TV Annular TDI TV Lateral Meeta s' Velocity 7.1 cm/s 9.5-18.7 Aortic Valve Name Value Normal AV Doppler AV Peak Velocity 307 cm/s AV Peak Gradient 38 mmHg AV Mean Gradient 21 mmHg AV VTI 67 cm AV Area (Cont Eq VTI) 0.7 cm2 >=3.0 AV Area (Cont Eq Neo) 0.7 cm2 AV V1/V2 Ratio 0.21 AV Regurgitation 2D LVOT Area 3.2 cm2 Ventricles Name Value Normal LV Dimensions 2D/MM IVS Diastolic Thickness (2D) 1.1 cm 0.6-1.0 LVID Diastole (2D) 5.4 cm 4.2-5.8 LVIW Diastolic Thickness (2D) 1.2 cm 0.6-1.0 LVID Systole (2D) 4.0 cm 2.5-4.0 LVOT Diameter 2.0 cm LV Mass (2D Cubed) 244.98 g 88.00-224.00 LV Mass Index (2D Cubed) 88 g/m2 49-115 Relative Wall Thickness (2D) 0.45 LV Fractional Shortening/Ejection Fraction 2D/MM LV Fractional Shortening (2D) 25 % 25-43 LV EF (2D Teicholz) 50 % 52-72 Atria Name Value Normal LA Dimensions LA Volume (4C A-L) 87 ml RA Dimensions RA Area (4C) 21.9 cm2 <=18.0 Report Signatures
--- OUTSIDE RECORDS SUMMARY | 2024-07-31 13:05 | XMS_ITS | Clinical Summary ---
Author Organization [facility] Address [address] 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
--- OUTSIDE RECORDS SUMMARY | 2024-07-31 13:05 | XMS_ITS | Encounter Summary ---
Author Organization [email or web address] Address 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
== END 2024-07-31 11:46 | disposition home or self-care (01) ==
PROVIDERS: PCP Family Medicine; Visit Provider Family Medicine
DX: R60.9 Edema, unspecified (principal); I10 Essential (primary) hypertension; E11.9 Type 2 diabetes mellitus without complications; R53.1 Weakness; I34.0 Nonrheumatic mitral (valve) insufficiency; I35.8 Other nonrheumatic aortic valve disorders
CPT/HCPCS: 93306

== ENCOUNTER 2024-08-03 10:30 | Outpatient (CLI) | payer MEDICARE, SELFPAY ==
[2024-08-03 13:22] LABS: Hematocrit 40.3 % (37.0-46.0); Hemoglobin 12.2 g/dL (12.4-15.3); Mean Corpuscular HGB Conc 30.3 g/dL (32-36); Mean Corpuscular Hemoglobin 28.1 pg (27.0-31.0); Mean Corpuscular Volume 92.9 fL (78.0-102.0); Mean Platelet Volume 10.2 fl (8.7-11.0); Platelet Count Result 293 K/mm3 (150-420); Red Blood Count 4.34 M/mm3 (4.70-6.10); Red Cell Distribution Width 14.7 % (11.6-14.4); White Blood Count 8.7 K/mm3 (4.8-10.8)
[2024-08-03 13:34] LABS: Anion Gap 6 mmol/L (4-12); Blood Urea Nitrogen 30 mg/dL (7-18); Calcium 8.4 mg/dL (8.5-10.1); Carbon Dioxide 29 mmol/L (21-32); Chloride 105 mmol/L (98-108); Estimated Glomerular Filt Rate 35; Glucose 185 mg/dL (70-99); Osmolality Calculated 301 mOsm/kg (285-295); Potassium 4.5 mmol/L (3.5-5.1); Sodium 140 mmol/L (136-145)
--- OUTSIDE RECORDS SUMMARY | 2024-08-04 13:02 | XMS_ITS | Encounter Summary ---
Author Organization [email or web address] Address [address] [place] [address] Care Team Providers Care Blast Furnace Keeper Name Role Phone Unavailable Primary Care Provider Unavailabl e Encounter Details Date Type Department Care Team (Latest Contact Info) Description 06/13/2006 Outpatient Historical HIS CARD ADMISSIONS ADVISOR KELVIN Jacinto, Prabhjot Soriano MD [address] [facility] [address] [place] [address] Other Nonspecific Abnormal Cardiovascular System Function Study (Primary Dx) Social History Tobacco Use Types Packs/Day Years Used Date Smoking Tobacco: Never Assessed Sex and Gender Information Value Date Recorded Sex Assigned at Not on file 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
--- OUTSIDE RECORDS SUMMARY | 2024-08-04 13:02 | XMS_ITS | Clinical Summary ---
Author Organization [facility] Address [address] 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
[2024-08-06 12:13] LABS: Ionized Calcium 4.9 mg/dL (4.7-5.5)
== END 2024-08-03 10:31 | disposition home or self-care (01) ==
LOC: CHSLAB 12:07
PROVIDERS: PCP Family Medicine; Visit Provider Family Medicine
DX: E11.22 Type 2 diabetes mellitus with diabetic chronic kidney disease (principal); J96.11 Chronic respiratory failure with hypoxia
CPT/HCPCS: 36415; 80048; 82330; 85027

== ENCOUNTER 2024-08-11 14:00 | Outpatient (CLI) | payer MEDICARE, SELFPAY ==
--- OUTSIDE RECORDS SUMMARY | 2024-08-11 14:03 | XMS_ITS | Clinical Summary ---
Author Organization [email or web address] Address [address] [place]enan: Epic Prelude ADT [place]ACE [place] [address] Care Team Providers Care Coding Machine Operator Name Role Phone Unavailable Primary Care Provider Unavailabl e Social History Tobacco Use Types Packs/Day Years Used Date Smoking Tobacco: Never Assessed Sex and Gender Information Value Date Recorded Sex Assigned at Not on file Legal Sex Male 2:52 AM RECORDS MANAGEMENT DIRECTOR Gender Identity Not on file Sexual Orientation [...]
--- OUTSIDE RECORDS SUMMARY | 2024-08-11 14:03 | XMS_ITS | Encounter Summary ---
Author Organization [employer] Address 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
[2024-08-11 14:40] LABS: Anion Gap 4 mmol/L (4-12); Blood Urea Nitrogen 33 mg/dL (7-18); Calcium 8.7 mg/dL (8.5-10.1); Carbon Dioxide 30 mmol/L (21-32); Chloride 101 mmol/L (98-108); Estimated Glomerular Filt Rate 35; Glucose 220 mg/dL (70-99); Osmolality Calculated 294 mOsm/kg (285-295); Potassium 4.3 mmol/L (3.5-5.1); Sodium 135 mmol/L (136-145)
== END 2024-08-11 14:01 | disposition home or self-care (01) ==
LOC: CHSLAB 14:01
PROVIDERS: PCP Family Medicine; Visit Provider Family Medicine
DX: I10 Essential (primary) hypertension (principal); E11.9 Type 2 diabetes mellitus without complications
CPT/HCPCS: 36415; 80048

== ENCOUNTER 2024-08-16 13:37 | Outpatient (CLI) | payer MEDICARE, SELFPAY ==
--- OUTSIDE RECORDS SUMMARY | 2024-08-16 13:42 | XMS_ITS | Clinical Summary ---
Author Organization [facility] Address [address] 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
--- OUTSIDE RECORDS SUMMARY | 2024-08-16 13:42 | XMS_ITS | Encounter Summary ---
Author Organization [employer] Address [address] [place] [address] Care Team Providers Care Kitchen Lead Name Role Phone Unavailable Primary Care Provider Unavailabl e Encounter Details Date Type Department Care Team (Latest Contact Info) Description 06/13/2006 Outpatient Historical HIS CARD NEGATIVE DEVELOPER KELVIN Jacinto, Prabhjot Soriano MD [address] [facility] [address] [place] [address] Other Nonspecific Abnormal Cardiovascular System Function Study (Primary Dx) Social History Tobacco Use Types Packs/Day Years Used Date Smoking Tobacco: Never Assessed Sex and Gender Information Value Date Recorded Sex Assigned at Not on file 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
[2024-08-16 15:09] LABS: Anion Gap 6 mmol/L (4-12); Blood Urea Nitrogen 29 mg/dL (9-20); Calcium 8.2 mg/dL (8.4-10.2); Carbon Dioxide 30 mmol/L (22-30); Chloride 103 mmol/L (98-107); Estimated Glomerular Filt Rate 52; Glucose 178 mg/dL (65-110); Osmolality Calculated 297 mOsm/kg (285-295); Potassium 4.4 mmol/L (3.4-5.0); Sodium 139 mmol/L (137-145)
== END 2024-08-16 13:38 | disposition home or self-care (01) ==
LOC: CHSLAB 13:40
PROVIDERS: PCP Family Medicine; Visit Provider Family Medicine
DX: I50.9 Heart failure, unspecified (principal); N18.30 Chronic kidney disease, stage 3 unspecified; E11.9 Type 2 diabetes mellitus without complications
CPT/HCPCS: 36415; 80048

== ENCOUNTER 2024-08-23 08:53 | Outpatient (CLI) | payer MEDICARE, SELFPAY ==
--- OUTSIDE RECORDS SUMMARY | 2024-08-23 08:59 | XMS_ITS | Clinical Summary ---
Author Organization [facility] Address [address] [place]: Epic Prelude ADT TRACE [place] [address] Care Team Providers Care It Service Continuity Supervisor Name Role Phone Unavailable Primary Care Provider Unavailabl e Social History Tobacco Use Types Packs/Day Years Used Date Smoking Tobacco: Never Assessed Sex and Gender Information Value Date Recorded Sex Assigned at Not on file Legal Sex Male 2:52 AM ORTHODONTIC LABORATORY TECHNICIAN Gender Identity Not on file Sexual Orientation [...]
--- OUTSIDE RECORDS SUMMARY | 2024-08-23 08:59 | XMS_ITS | Encounter Summary ---
Author Organization [employer] Address [address] [place] [address] Care Team Providers Care Addictions Counselor Assistant Name Role Phone Unavailable Primary Care Provider Unavailabl e Encounter Details Date Type Department Care Team (Latest Contact Info) Description 06/13/2006 Outpatient Historical HIS CARD RECEIVING COORDINATOR KELVIN Jacinto, Prabhjot Soriano MD [address] [facility] [address] [place] [address] Other Nonspecific Abnormal Cardiovascular System Function Study (Primary Dx) Social History Tobacco Use Types Packs/Day Years Used Date Smoking Tobacco: Never Assessed Sex and Gender Information Value Date Recorded Sex Assigned at Not on file 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
[2024-08-25 01:43] LABS: Vitamin D 25 Hydroxy 39 ng/mL (30-100)
== END 2024-08-23 08:54 | disposition home or self-care (01) ==
LOC: CHSLAB 08:55
PROVIDERS: PCP Family Medicine; Visit Provider Family Medicine
DX: E55.9 Vitamin D deficiency, unspecified (principal)
CPT/HCPCS: 36415; 82306

== ENCOUNTER 2024-09-03 00:28 | Day surgery (SDC) | payer MEDICARE, MEDICAID, SELFPAY ==
[2024-08-31 09:52] VITALS: BMI 43.9
[2024-09-03] VITALS (10 sets, daily range): BP systolic 113–141; BP diastolic 48–68; PULSE 66–73; RESP 12–16; TEMP 36.4; O2SAT 92–98; BMI 43.0
--- OUTSIDE RECORDS SUMMARY | 2024-09-03 00:32 | XMS_ITS | Encounter Summary ---
Author Organization [employer] Address [address] [place] [address] Care Team Providers Care Iron Melter Name Role Phone Unavailable Primary Care Provider Unavailabl e Encounter Details Date Type Department Care Team (Latest Contact Info) Description 06/13/2006 Outpatient Historical HIS CARD COOK JELLY KELVIN Jacinto, Prabhjot Soriano MD [address] [facility] [address] [place] [address] Other Nonspecific Abnormal Cardiovascular System Function Study (Primary Dx) Social History Tobacco Use Types Packs/Day Years Used Date Smoking Tobacco: Never Assessed Sex and Gender Information Value Date Recorded Sex Assigned at Not on file 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
--- OUTSIDE RECORDS SUMMARY | 2024-09-03 00:32 | XMS_ITS | Clinical Summary ---
Author Organization [facility] Address [address] 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
--- NOTE | 2024-09-03 08:00 | ECHO_ITS ---
Patient Info Name: Joel Alcala Age: 69 years : 1955 Gender: Male Ht: 72 in Wt: 324 lbs BSA: 2.80 m2 Technical Quality: Good Exam Date: 09/03/2024 8:04 AM Patient Status: unknown Admit Date: 09/03/2024 Exam Type: CA echo transesophageal Complete two-dimensional, color flow and Doppler transesophageal study is performed. Operator Automated Process: Jazmín Mcpherson Attending Provider: Rivera Chawla DO Summary 1. Left ventricular chamber dimension is normal. 2. Left ventricular systolic function is mildly reduced with an ejection fraction of 45-50% by visual estimation. 3. There is mild concentric increased left ventricular wall thickness. 4. The left ventricular diastolic function is indeterminate as it was not assessed. 5. Left atrial chamber dimension is mildly enlarged. 6. There is severe aortic valve sclerosis. 7. There is trace aortic valve regurgitation. 8. There is severe aortic valve stenosis and it was measured at 0.6 cm2 by planimetry. 9. There is mild mitral valve regurgitation. Procedure Details Risks/benefits/alternative to PHYLICIA discuss with patient and he gave informed consent. He was monitored electrocardiographically, vitals and he was in normal rhythm, with BP 128/70, HR 70 bpm and pulse ox>94% on O2 NC. Cetacaine spray x1 to posterior oropharynx.He was given Fentanly 50 mcg IV and Versed 4 mg IV for conscious sedation. PHYLICIA probe advanced into esophagus without incident. Multiple images obtained. Agitated saline given in IV x1. PHYLICIA probe withdrawn and no blood noted on probe tip. He tolerated procedure well with no complications. Left Ventricle Left ventricular chamber dimension is normal. Left ventricular systolic function is mildly reduced with an ejection fraction of 45-50% by visual estimation. There is mild concentric increased left ventricular wall thickness. The left ventricular diastolic function is indeterminate as it was not assessed. Right Ventricle Right ventricular chamber dimension is normal. Right ventricular systolic function is normal. Left Atria Left atrial chamber dimension is mildly enlarged. Right Atria Right atrial chamber dimension is normal. Atrial Septum Intact interatrial septum visualized by 2D, Doppler and agitated saline imaging. Agitated saline injection opacified right side cardiac chambers without shunt to left side cardiac chambers. Atrial Appendage There is no thrombus visualized in the left atrial appendage. Aortic Valve The aortic valve is probable trileaflet. There is severe aortic valve sclerosis. There is trace aortic valve regurgitation. There is severe aortic valve stenosis and it was measured at 0.6 cm2 by planimetry. Pulmonic Valve There is no pulmonic regurgitation. Mitral Valve There is no mitral valve stenosis. There is mild mitral valve regurgitation. Tricuspid Valve There is no tricuspid valve regurgitation. Pericardium/Pleural There is no pericardial effusion. Inferior Vena Cava Inferior vena cava is not well visualized. Aorta The aortic root size at the sinus of Valsalva is normal. Aortic Valve Name Value Normal AV 2D/MM AV Area (Planimetry) 0.6 cm2 Report Signatures
[2024-09-03] MEDS: MIDAZOLAM HCL (*CRX) 10 MG/2 ML VIAL 4 MG IV PUSH (08:08)
[2024-09-03] MEDS: fentaNYL CITRATE INJ (*CRX) 100 MCG/2 ML VIAL 50 MCG IV PUSH (08:08)
== END 2024-09-03 09:47 | disposition home or self-care (01) ==
PROVIDERS: PCP Family Medicine; Visit Provider Internal Medicine Cardiovascular Disease
PROC: (CPT 93312; principal; 2024-09-03 08:00)
DX: I35.0 Nonrheumatic aortic (valve) stenosis (principal); I35.8 Other nonrheumatic aortic valve disorders; I34.0 Nonrheumatic mitral (valve) insufficiency; I11.0 Hypertensive heart disease with heart failure; I50.9 Heart failure, unspecified; E11.9 Type 2 diabetes mellitus without complications; F03.90 Unspecified dementia, unspecified severity, without behavioral disturbance, psychotic disturbance, mood disturbance, and anxiety; E78.5 Hyperlipidemia, unspecified; D64.9 Anemia, unspecified; K21.9 Gastro-esophageal reflux disease without esophagitis; M19.90 Unspecified osteoarthritis, unspecified site; Z79.02 Long term (current) use of antithrombotics/antiplatelets; Z79.85 Long-term (current) use of injectable non-insulin antidiabetic drugs; Z79.891 Long term (current) use of opiate analgesic; Z99.3 Dependence on wheelchair
CPT/HCPCS: 93312; 93320; 93325; J2250; J3010; J7030

== ENCOUNTER 2024-09-12 14:38 | Emergency (ER) | payer MEDICARE, MEDICAID, SELFPAY ==
[2024-09-12] VITALS (53 sets, daily range): BP systolic 106–157; BP diastolic 54–90; PULSE 58–80; RESP 12–22; TEMP 36.6; O2SAT 92–100
--- NOTE | ~2024-09-12 | XR_ITS ---
XR chest 1V portable 09/12/2024 15:17 Indication: Shortness of breath Procedure: AP portable chest Comparison: Comparison to multiple prior studies sequentially, with oldest reviewed study dated 06/17. Findings: Cardiomegaly. Mild interstitial edema. No pleural effusion or pneumothorax. No acute osseou s abnormality. Impression: 1: Cardiomegaly with interstitial edema. Reviewed, dictated and finalized at location B. Impression: 1: Cardiomegaly with interstitial edema.
--- NOTE | 2024-09-12 15:08 | ECG_ITS ---
Test Date: 2024-09-12 15:21:27 Measurements Intervals [place] Rate: 73 P: 57 RI: 250 QRS: -42 QRSD: 120 T: 152 QT: 435 QTc: 480 Interpretive Statements SINUS RHYTHM WITH FIRST DEGREE AV BLOCK WITH OCCASIONAL SUPRAVENTRICULAR PREMATURE COMPLEXES LEFT AXIS DEVIATION INTRAVENTRICULAR CONDUCTION DELAY LEFT VENTRICULAR HYPERTROPHY WITH ST-T CHANGE POSSIBLE ANTERIOR MYOCARDIAL INFARCTION , PROBABLY OLD BASELINE ARTIFACT- I, II, III, AVR, AVL, AVF ABNORMAL ECG Compared to ECG 07/20/2024 13:33:58 NO SIGNIFICANT CHANGE Electronically Signed On 09-12-2024 15:22:32 CDT by Rivera Chawla D.O.
--- NOTE | 2024-09-12 15:09 | PC.NURSE ---
pt sees wound clinic for bilateral lower leg wounds. dressings changed daily with natacha wraps and diabetic socks.
--- NOTE | 2024-09-12 15:10 | ED_ITS ---
HPI - URI/Sore Throat General Chief Complaint: Upper Respiratory Infection Stated Complaint: cough, uri Source: patient, family and EMS Mode of arrival: ambulatory Limitations: no limitations and altered mental status History of Present Illness HPI Narrative: 69-year-old male with a history of dementia hypertension, diabetes mellitus, dyslipidemia critical aortic stenosis, diastolic dysfunction, systolic dysfunction with an EF of 45-50%, GERD, CKD presents to the ED with 1 week history of -- nonproductive cough. the patient was started on antibiotics by his primary care physician -- right leg chronic venous stasis changes with blisters and erythema no fever or chills no chest pain /palpitation. Denies shortness of breath/paroxysmal nocturnal dyspnea he was admitted on 07/21/2024 for CHF exacerbation and leg cellulitis. MD elicited complaint: cough Onset (ago): week(s) ( 1 week) Consistency: constant Severity: moderate Able to tolerate fluids by mouth: Yes Exacerbating factors: nothing Relieving factors: nothing Associated symptoms: cough Related Data Home Medications ?Medication ?Instructions ?Recorded ?Confirmed ?Last Taken ?Type acetaminophen 500 mg tablet 500 mg PO .Q8HR PRN pain 07/20/24 08/31/24 07/20/24 History acetaminophen 500 mg tablet 1,000 mg PO QAM PRN pain (scale 07/20/24 08/31/24 07/20/24 History (Tylenol Extra Strength) score 1-3) atorvastatin 40 mg tablet (Lipitor) 40 mg PO HS 07/20/24 09/03/24 09/02/24 History clopidogrel 75 mg tablet 75 mg PO DAILY 07/20/24 09/03/24 09/02/24 History ferrous sulfate 325 mg (65 mg 325 mg PO DAILY 07/20/24 09/03/24 09/02/24 History iron) tablet fluoxetine 10 mg tablet 10 mg PO DAILY 07/20/24 09/03/24 09/02/24 History fluoxetine 20 mg capsule 20 mg PO DAILY 07/20/24 09/03/24 09/02/24 History pantoprazole 40 mg tablet,delayed 40 mg PO BID 07/20/24 09/03/24 09/02/24 History release semaglutide 2 mg/dose (8 mg/3 mL) 2 mg subcut WEEKLY 07/20/24 09/03/24 09/02/24 History subcutaneous pen injector (Ozempic) tamsulosin 0.4 mg capsule 0.4 mg PO HS 07/20/24 09/03/24 09/02/24 History tramadol 50 mg tablet 50 mg PO Q6H PRN pain 07/20/24 08/31/24 Unknown History furosemide 40 mg tablet 40 mg PO BID 08/20/24 09/03/24 09/02/24 History ascorbic acid (vitamin C) 250 mg 250 mg PO DAILY 09/12/24 Unknown History tablet azithromycin 250 mg tablet 250 mg PO DAILY 09/12/24 09/12/24 History ergocalciferol (vitamin D2) 50 mcg 50 mcg PO DAILY 09/12/24 Unknown History (2,000 unit) capsule insulin glargine 100 unit/mL (3 25 unit subcut QPM 09/12/24 Unknown History mL) subcutaneous pen (Basaglar KwikPen U-100 Insulin) Allergies Allergy/AdvReac Type Severity Reaction Status Date / Time No Known Allergies Allergy Verified 09/12/24 14:58 Review of Systems 2 Review of Systems: All systems reviewed & are unremarkable except as noted in HPI and below ROS unobtainable: Yes unobtainable due to mental status Constitutional: Constitutional: Reports as per HPI and Reports no additional constitutional complaints Eyes: Eyes: Reports as per HPI and Reports no additional eye complaints ENT: Reports system reviewed and no additional complaints, except as documented and Reports as per HPI Cardiovascular: Cardiovascular: Reports as per HPI and Reports no additional cardiovascular complaints Respiratory: Respiratory: Reports as per HPI, Reports no additional respiratory complaints and Reports cough Gastrointestinal: Gastrointestinal: Reports as per HPI and Reports no additional gastrointestinal complaints Genitourinary: Genitourinary: Reports no additional male genitourinary complaints and Reports as per HPI Musculoskeletal: Musculoskeletal: Reports no additional musculoskeletal complaints and Reports as per HPI Integumentary/Breasts: Skin/Breast: Reports system reviewed and no additional complaints, except as docu Comments: Right leg has chronic venous stasis changes with some blisters and erythema Neurologic: Reports system reviewed and no additional complaints, except as documented and Reports as per HPI Endocrine: Endocrine: Reports no additional endocrine complaints and Reports as per HPI Hematologic/Lymphatic: Hematologic/Lymphatic: Reports no additional hematologic/lymphatic complaints and Reports as per HPI [facility] Past Medical History Medical History History of cellulitis Anemia Type 2 diabetes mellitus Arthritis GERD (gastroesophageal reflux disease) Hypertension Hyperlipidemia Dementia Family History Family History Grandparent Parkinsons disease Social History Social History Smoking status: Never smoker Second hand tobacco smoke exposure: No Alcohol intake: never Substance use: never Substance use type: does not use Living arrangements: with family Spiritual care concerns: No Exam 2 Narrative: blood pressure 110/64 with a pulse of 60. Respiratory rate of 22. Oxygen saturation of 94% on room air. Afebrile Const: General: ill appearing Nutritional Appearance: obese O rientation/consciousness: patient oriented x3 Limitations: no limitations HENMT: Head: normal to inspection Ears: external ears normal and TM's normal bilaterally Face/Nose/Sinus: Normal external nose present Face and sinus: normal facial exam Mouth: Yes Normal oral and palatal mucosa present Throat: posterior oropharynx normal Eyes: Conjunctivae: conjunctivae normal Pupils: Equal, round and reactive pupils present EOM: EOMs intact bilaterally Direct Ophthalmoscopy: no photophobia Neck: Neck: normal visual inspection, no lymphadenopathy and no meningeal signs Chest: Chest palpation & inspection: normal inspection of the chest Resp: Auscultation: rhonchi Cardio: Rate: regular rate Rhythm: regular rhythm GI: GI Palp: Yes Soft to palpation Auscultation: normal bowel sounds O ther: no tenderness/ rigidity / rebound. : General: Yes no CVA tenderness Back/Spine/Pelvis: Back: no CVA tenderness Skin: Other: Bilateral legs have chronic venous stasis changes. Right leg has erythematous changes with blisters Neuro: General: moves all extremities, no meningeal signs and no focal motor deficits Speech: normal speech Extrem: General: normal to inspection and edema Other: chronic venous stasis changes both legs with blisters and erythema of the right Course Course Emergency Course: shortness of breath/ cough-- secondary to CHF exacerbation. patient had a troponin of 0.036( upper limit of normal is 0.034) with a proBNP of 1 2 600. Chest x-ray revealed pulmonary vascular congestion with cardiomegaly. right leg cellulitis-- Will culture and start Unasyn. Vital Signs Vital signs: Vital Signs Oxygen Delivery Room Air 06/11/25 14:42 Temperature 36.6 C 09/12/24 14:47 Pulse Rate 62 09/12/24 16:34 Respiratory Rate 20 09/12/24 16:34 Blood Pressure 124/72 09/12/24 16:36 Pulse Oximetry 92 09/12/24 16:36 Oxygen Delivery Room Air 09/12/24 16:34 MDM - URI/Sore Throat MDM Narrative Medical decision making narrative: CHF exacerbation/ critical aortic stenosis right leg cellulitis Differential Diagnosis Differential diagnosis: Likely upper respiratory infection and bronchitis Medical Records Attestation: I reviewed the patient's medical records. Lab Data Attestation: I reviewed the patient's lab results. 09/12/24 15:21 09/12/24 15:21 Labs: Lab Results 09/12/24 Range/Units 15:21 WBC 6.8 (4.8-10.8) K/mm3 RBC 4.61 L (4.70-6.10) M/mm3 Hgb 13.0 (12.4-15.3) g/dL Hct 42.4 (37.0-46.0) % MCV 92.0 (78.0-102.0) fL MCH 28.2 (27.0-31.0) pg MCHC 30.7 L (32-36) g/dL RDW 15.2 H (11.6-14.4) % Plt Count 215 (150-420) K/mm3 MPV 9.9 (8.7-11.0) fl Immature Gran % (Auto) Not Reportable Neut % (Auto) Not Reportable Lymph % (Auto) Not Reportable [place] % (Auto) Not Reportable Eos % (Auto) Not Reportable Baso % (Auto) Not Reportable Lymph # (Auto) Not Reportable [place] # (Auto) Not Reportable Eos # (Auto) Not Reportable Baso # (Auto) Not Reportable Abs Immat Gran (auto) Not Reportable Absolute Neuts (auto) Not Reportable Absolute Nucleated RBC Not Reportable Total Counted 100 Neutrophils % (Manual) 72 (46-73) % Band Neutrophils % 1 (0-6) % Lymphocytes % (Manual) 11 L (18-44) % Monocytes % (Manual) 11 H (3-9) % Eosinophils % (Manual) 2 (1-6) % Basophils % (Manual) 3 H (0-1) % Nucleated RBC % Not Reportable Abs Neuts (Manual) 4.96 (1.3-6.7) K/mm3 Abs Lymphs (Manual) 0.74 L (1.1-4.5) K/mm3 Abs Monocytes (Manual) 0.74 (0.1-0.90) K/mm3 Absolute Eos (Manual) 0.13 (0.02-0.50) K/mm3 Abs Basophils (Manual) 0.20 H (0-0.1) K/mm3 Platelet Estimate Adequate (Adequate) Schistocytes Not Reportable D-Dimer 0.45 (0.19-0.50) mg/L Sodium 138 (137-145) mmol/L Potassium 4.2 (3.4-5.0) mmol/L Chloride 103 (98-107) mmol/L Carbon Dioxide 29 (22-30) mmol/L Anion Gap 6 (4-12) mmol/L BUN 39 H D (9-20) mg/dL Creatinine 1.40 H (0.7-1.3) mg/dL Estim Creat Clear Calc 69 ml/min Estimated GFR 51 L (59 - ) Glucose 139 H (65-110) mg/dL Calculated Osmolality 297 H (285-295) mOsm/kg Lactic Acid 2.3 H (0.4-2.0) mmol/L Calcium 8.3 L (8.4-10.2) mg/dL Magnesium 1.9 (1.6-2.3) mg/dL Total Bilirubin 0.9 (0.2-1.3) mg/dL AST 37 (17-59) U/L ALT 17 (6-50) U/L Alkaline Phosphatase 131 H (38-126) U/L Troponin I 0.036 H* (0.000-0.034) ng/mL NT-Pro-B Natriuret Pep 55237 H (19.9-100) pg/mL Total Protein 6.7 (6.3-8.2) g/dL Albumin 3.5 (3.5-5.1) g/dL TSH 2.940 (0.465-4.680) uIU/mL Influenza A (RT-PCR) Negative (Negative) Influenza B (RT-PCR) Negative (Negative) RSV (RT-PCR) Negative (Negative) SARS-CoV-2 RNA (RT-PCR) Negative (Negative) ECG Data EKG #1: ECG completion date: 09/12/24 ECG completion time: 15:21 Interpretation: normal sinus rhythm. Left axis deviation. First-degree AV block. Left ventricular hypertrophy with secondary ST depression and T inversion. No ST elevation noted. Discharge Plan Discharge Clinical Impression: CHF (congestive heart failure) Qualifiers: Heart failure type: combined systolic and diastolic Heart failure chronicity: c hronic Qualified Code(s): I50.42 - Chronic combined systolic (congestive) and diastolic (congestive) heart failure Cellulitis Qualifiers: Site of cellulitis: extremity Site of cellulitis of extremity: lower extremity Laterality: right Qualified Code(s): L03.115 - Cellulitis of right lower limb CKD (chronic kidney disease) Qualifiers: Chronic kidney disease stage: stage 3 (moderate) Chronic kidney disease stage 3 subtype: stage 3b (GFR 30-44) Qualified Code(s): N18.32 - Chronic kidney disease, stage 3b Patient Disposition: Still a Patient Condition: Stable Additional Instructions: Transfer patient to [facility]. Patient Language: Mongolian Prescriptions: No Action ferrous sulfate 325 mg (65 mg iron) tablet 325 mg PO DAILY Ozempic 2 mg/dose (8 mg/3 mL) pen injector 2 mg subcut WEEKLY Patient Comments: taken every tuesday pantoprazole 40 mg tablet,delayed release (DR/EC) 40 mg PO BID clopidogrel 75 mg tablet 75 mg PO DAILY acetaminophen [Tylenol Extra Strength] 500 mg tablet 1,000 mg PO QAM PRN (Reason: pain (scale score 1-3)) fluoxetine 20 mg capsule 20 mg PO DAILY fluoxetine 10 mg tablet 10 mg PO DAILY acetaminophen 500 mg tablet 500 mg PO .Q8HR PRN (Reason: pain) atorvastatin [Lipitor] 40 mg tablet 40 mg PO HS tamsulosin 0.4 mg capsule 0.4 mg PO HS tramadol 50 mg tablet 50 mg PO Q6H PRN (Reason: pain) insulin glargine [Basaglar KwikPen U-100 Insulin] 100 unit/mL (3 mL) insulin pen 25 unit subcut QPM ascorbic acid (vitamin C) 250 mg tablet 250 mg PO DAILY azithromycin 250 mg tablet 250 mg PO DAILY Patient Comments: stop 09-16-24 Rx Instructions: start on day 2 of therapy ergocalciferol (vitamin D2) 50 mcg (2,000 unit) capsule 50 mcg PO DAILY furosemide 40 mg tablet 40 mg PO BID Follow-up/Referrals: Jaxon Angel MD [Primary Care Provider] - Time of Disposition: 17:16
[2024-09-12 15:25] LABS: Hematocrit 42.4 % (37.0-46.0); Mean Corpuscular HGB Conc 30.7 g/dL (32-36); Mean Corpuscular Hemoglobin 28.2 pg (27.0-31.0); Mean Platelet Volume 9.9 fl (8.7-11.0); Platelet Count Result 215 K/mm3 (150-420); Red Blood Count 4.61 M/mm3 (4.70-6.10); Red Cell Distribution Width 15.2 % (11.6-14.4); White Blood Count 6.8 K/mm3 (4.8-10.8)
[2024-09-12] MEDS: IPRATROPIUM 0.5 MG/ALBUTEROL SULFATE 2.5 MG AMPUL.NEB 3 ML INHALATION (15:33)
[2024-09-12 15:39] LABS: D Dimer 0.45 mg/L (0.19-0.50)
[2024-09-12 15:40] LABS: Alanine Aminotransferase 17 U/L (6-50); Albumin Level 3.5 g/dL (3.5-5.1); Alkaline Phosphatase 131 U/L (38-126); Anion Gap 6 mmol/L (4-12); Aspartate Amino Transferase 37 U/L (17-59); Bilirubin,Total 0.9 mg/dL (0.2-1.3); Blood Urea Nitrogen 39 mg/dL (9-20); Calcium 8.3 mg/dL (8.4-10.2); Carbon Dioxide 29 mmol/L (22-30); Chloride 103 mmol/L (98-107); Estimated CRCL calculation 69 ml/min; Estimated Glomerular Filt Rate 51; Glucose 139 mg/dL (65-110); Magnesium 1.9 mg/dL (1.6-2.3); Osmolality Calculated 297 mOsm/kg (285-295); Potassium 4.2 mmol/L (3.4-5.0); Sodium 138 mmol/L (137-145); Total Protein 6.7 g/dL (6.3-8.2)
[2024-09-12 15:41] LABS: Lactic Acid Reflex 2.3 mmol/L (0.4-2.0)
[2024-09-12 15:42] LABS: Band Neutrophils Percent 1 % (0-6); Basophils Percent Manual 3 % (0-1); Eosinophils Absolute Manual 0.13 K/mm3 (0.02-0.50); Eosinophils Percent Manual 2 % (1-6); Lymphocytes Absolute Manual 0.74 K/mm3 (1.1-4.5); Lymphocytes Percent Manual 11 % (18-44); Monocytes Absolute Manual 0.74 K/mm3 (0.1-0.90); Monocytes Percent Manual 11 % (3-9); Neutrophils Absolute Manual 4.96 K/mm3 (1.3-6.7); Neutrophils Percent Manual 72 % (46-73); Total Cells Counted 100
[2024-09-12 15:43] LABS: Platelet Estimate Adequate (Adequate)
[2024-09-12 15:53] LABS: NT Pro B Type Natriuretic Pept 12600 pg/mL (19.9-100)
[2024-09-12 15:56] LABS: Troponin I 0.036 ng/mL (0.000-0.034)
[2024-09-12 16:01] LABS: Influenza A QL RT-PCR Negative (Negative); Influenza B QL RT-PCR Negative (Negative); RSV RNA, RT-PCR Negative (Negative); SARS-CoV-2 RNA PCR Negative (Negative)
[2024-09-12] MEDS: FUROSEMIDE INJ 40 MG/4 ML VIAL IV PUSH (16:45)
--- OUTSIDE RECORDS SUMMARY | 2024-09-12 17:18 | XMS_ITS | Clinical Summary ---
[facility] Organization [facility] Address [address] 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
--- OUTSIDE RECORDS SUMMARY | 2024-09-12 17:18 | XMS_ITS | Encounter Summary ---
Author Organization [email or web address] Address [address] [place] [address] Care Team Providers Care Forklift Truck Mechanic Name Role Phone Unavailable Primary Care Provider Unavailabl e Encounter Details Date Type Department Care Team (Latest Contact Info) Description 06/13/2006 Outpatient Historical HIS CARD FAILURE ANALYSIS TECHNICIAN KELVIN Jacinto, Prabhjot Soriano MD [address] [facility] [address] [place] [address] Other Nonspecific Abnormal Cardiovascular System Function Study (Primary Dx) Social History Tobacco Use Types Packs/Day Years Used Date Smoking Tobacco: Never Assessed Sex and Gender Information Value Date Recorded Sex Assigned at Not on file 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
[2024-09-12 17:23] LABS: Reflex Lactic Acid Yes or No Add Lactic
[2024-09-12] MEDS: AMPICILLIN SULB 3 GM/NS 100 ML 3 GM/100 ML VIAL IVPB (17:27)
--- OUTSIDE RECORDS SUMMARY | 2024-09-12 17:47 | XMS_ITS | Clinical Summary ---
Author Organization [facility] Address [address] 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
--- OUTSIDE RECORDS SUMMARY | 2024-09-12 17:47 | XMS_ITS | Encounter Summary ---
Author Organization [facility] Address [address] [place] [address] Care Team Providers Care Flag Signaler Name Role Phone Unavailable Primary Care Provider Unavailabl e Encounter Details Date Type Department Care Team (Latest Contact Info) Description 06/13/2006 Outpatient Historical HIS CARD INTERMODAL CUSTOMER SERVICE KELVIN Jacinto, Prabhjot Soriano MD [address] [facility] [address] [place] [address] Other Nonspecific Abnormal Cardiovascular System Function Study (Primary Dx) Social History Tobacco Use Types Packs/Day Years Used Date Smoking Tobacco: Never Assessed Sex and Gender Information Value Date Recorded Sex Assigned at Not on file 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
[2024-09-12 17:58] LABS: Lactic Acid 1.7 mmol/L (0.7-2.0)
--- NOTE | 2024-09-12 19:08 | PC.NURSE ---
pt report to abby woody
--- NOTE | 2024-09-12 20:13 | PC.NURSE ---
spoke with patient about switching him over to a hospital bed, patient declined and stated that he was fine on the stretcher at this time. Will check again later.
[2024-09-12 23:41] LABS: Glucose Point of Care 175 mg/dl (65-105)
[2024-09-13] VITALS (93 sets, daily range): BP systolic 116–151; BP diastolic 57–101; PULSE 56–76; RESP 11–21; TEMP 36.7; O2SAT 90–100
--- NOTE | 2024-09-13 00:05 | PC.NURSE ---
ERP Dr. Martinez at patient bedside at this time. patient sister at bedside.
[2024-09-13 01:38] LABS: Glucose Point of Care 145 mg/dl (65-105)
--- NOTE | 2024-09-13 01:45 | PC.NURSE ---
Spoke with sister (RAYNE) about patient refusing his protonix and atorvastatin, she stated that it was fine tonight. She stated the last time patient had gone to his PCP his cholesterol levels were good and patient was not having any other complaints. Patient and family educated on medications and administration purposes, ERP aware, still wanting to refuse.
[2024-09-13] MEDS: INSULIN GLARGINE (*BKC) 1,000 UNITS/10 ML VIAL 15 UNITS SUB-Q (01:54)
--- NOTE | 2024-09-13 02:32 | PC.NURSE ---
Patient still requesting to stay on stretcher, not wanting to move to a hospital bed at this time.
[2024-09-13] MEDS: AMPICILLIN SULB 3 GM/NS 100 ML 3 GM/100 ML VIAL IVPB (06:56)
--- NOTE | 2024-09-13 07:15 | PC.NURSE ---
Report received from salesperson children's shoes RN
--- NOTE | 2024-09-13 09:08 | PC.NURSE ---
breakfast served to patient
[2024-09-13 12:19] LABS: Glucose Point of Care 127 mg/dl (65-105)
--- NOTE | 2024-09-13 12:30 | PC.NURSE ---
Patient provided lunch tray with ERP approval
--- NOTE | 2024-09-14 12:22 | PC.NURSE ---
PRELIMINARY BLOOD CULUTRE REPORT; NO GROWTH TO DATE.
--- NOTE | 2024-09-18 12:57 | PC.NURSE ---
FINAL BLOOD CULTURE REPORT; NO GROWTH AFTER 5 DAYS.
== END 2024-09-13 15:05 | disposition short-term general hospital (02) ==
PROVIDERS: Internal Medicine Critical Care Medicine; Emergency Provider Emergency Medicine; PCP Family Medicine
DX: I13.0 Hypertensive heart and chronic kidney disease with heart failure and stage 1 through stage 4 chronic kidney disease, or unspecified chronic kidney disease (principal); I50.40 Unspecified combined systolic (congestive) and diastolic (congestive) heart failure; N18.32 Chronic kidney disease, stage 3b; E11.22 Type 2 diabetes mellitus with diabetic chronic kidney disease; L03.115 Cellulitis of right lower limb; F03.90 Unspecified dementia, unspecified severity, without behavioral disturbance, psychotic disturbance, mood disturbance, and anxiety; Z79.899 Other long term (current) drug therapy; Z79.4 Long term (current) use of insulin; Z20.822 Contact with and (suspected) exposure to COVID-19
CPT/HCPCS: 36415; 71045; 80053; 82948; 83605; 83735; 83880; 84443; 84484; 85025; 85380; 87040; 87637; 93005; 94640; 96365; 96375; 99285; A9270; J0295; J1815; J1938